=== PATIENT | female | born 1935 | race Caucasian/White ===

== ENCOUNTER → 2020-07-24 08:06 | Outpatient (CLI) | payer MEDICARE, BC, SELFPAY ==
[2020-07-24 18:55] LABS: Hemoglobin A1C% w Est Avg Glu 7.4 % (4.0-6.0)
== END ==
PROVIDERS: Visit Provider Family Medicine
DX: E11.9 Type 2 diabetes mellitus without complications (principal)
CPT/HCPCS: 83036

== ENCOUNTER → 2020-10-10 09:50 | Outpatient (CLI) | payer MEDICARE, BC, SELFPAY ==
[2020-10-10 19:30] LABS: Cholesterol 136 mg/dL (140-199); HDL Cholesterol 43 mg/dL (40-60); LDL Cholesterol Calculated 68 mg/dL (<100); Triglycerides 125 mg/dL (35-150)
[2020-10-10 19:36] LABS: Creatinine Urine Random 237.3 mg/dL
[2020-10-10 19:38] LABS: Microalbumin Urine Random 1.2 mg/dL (0-1.6)
[2020-10-10 20:24] LABS: Vitamin B12 Reflex MMA if <400 838 pg/mL (239-931)
== END ==
PROVIDERS: PCP Physician Assistant; Referring Provider Physician Assistant; Visit Provider Physician Assistant
DX: E11.59 Type 2 diabetes mellitus with other circulatory complications (principal); E11.69 Type 2 diabetes mellitus with other specified complication; E03.9 Hypothyroidism, unspecified; E66.9 Obesity, unspecified; E78.5 Hyperlipidemia, unspecified; I10 Essential (primary) hypertension; I15.2 Hypertension secondary to endocrine disorders; E53.8 Deficiency of other specified B group vitamins
CPT/HCPCS: 80061; 82043; 82570; 82607; 83036

== ENCOUNTER → 2020-12-24 13:27 | Outpatient (CLI) | payer MEDICARE, BC, SELFPAY ==
[2020-12-24 18:42] LABS: Add Manual Diff / Slide Review NO; Basophils Absolute Auto 0 /uL (0-100); Basophils Percent Auto 0.6 % (0-2); Eosinophils Absolute Auto 600 /uL (0-450); Eosinophils Percent Auto 9.9 % (2-4); Hematocrit 40.1 % (36-46); Hemoglobin 13.3 g/dL (12.0-16.0); Lymphocytes Absolute Auto 1800 /uL (1100-4500); Lymphocytes Percent Auto 28.4 % (25-40); Mean Corpuscular HGB Conc 33.3 % (30-36); Mean Corpuscular Hemoglobin 30.6 PG (26-34); Mean Corpuscular Volume 91.9 fL (80-100); Monocytes Absolute Auto 300 /uL (0-900); Monocytes Percent Auto 5.1 % (3-14); Neutrophils Absolute Auto 3600 /uL (1500-7000); Platelet Count 214 X10^3/uL (150-400); Red Blood Cell Count 4.36 X10^6/uL (4.0-5.2); Red Cell Distribution Width 14.3 % (11.6-14.8); White Blood Cell Count 6.5 X10^3/uL (4.5-11.0)
[2020-12-24 18:53] LABS: Alanine Aminotransferase 28 IU/L (<35); Albumin 3.9 g/dL (3.5-5.0); Albumin Globulin Ratio 1.5 (1.0-2.8); Alkaline Phosphatase 79 U/L (38-126); Aspartate Aminotransferase 31 IU/L (14-36); BUN Creatinine Ratio 17.7 (6-22); Bilirubin Total 0.3 mg/dL (0.2-1.3); Blood Urea Nitrogen 11 mg/dL (7-17); Calcium 9.6 mg/dL (8.4-10.2); Carbon Dioxide 30 mmol/L (22-32); Chloride 103 mmol/L (98-107); Estimated Glomerular Filt Rate > 60.0 mL/min (>60); Globulin 2.6 g/dL (1.7-4.1); Glucose 146 mg/dL (80-110); HEMOLYSIS < 15 (0-50); Potassium 4.5 mmol/L (3.4-5.1); Sodium 140 mmol/L (137-145); Total Protein 6.5 g/dL (6.3-8.2)
== END ==
PROVIDERS: PCP Family Medicine; Referring Provider Family Medicine; Visit Provider Family Medicine
DX: I10 Essential (primary) hypertension (principal); E11.59 Type 2 diabetes mellitus with other circulatory complications; E11.69 Type 2 diabetes mellitus with other specified complication; E66.9 Obesity, unspecified; E78.5 Hyperlipidemia, unspecified; I15.2 Hypertension secondary to endocrine disorders
CPT/HCPCS: 80053; 83036; 85025

== ENCOUNTER → 2021-04-04 08:55 | Outpatient (CLI) | payer OTHER, SELFPAY ==
[2021-04-04 19:42] LABS: Add Manual Diff / Slide Review NO; Amylase 38 U/L (30-110); Basophils Absolute Auto 0 /uL (0-100); Basophils Percent Auto 0.6 % (0-2); Eosinophils Absolute Auto 800 /uL (0-450); Eosinophils Percent Auto 12.8 % (2-4); Hematocrit 40.9 % (36-46); Hemoglobin 13.6 g/dL (12.0-16.0); Lipase 23 U/L (23-300); Lymphocytes Absolute Auto 1900 /uL (1100-4500); Lymphocytes Percent Auto 30.8 % (25-40); Mean Corpuscular HGB Conc 33.2 % (30-36); Mean Corpuscular Hemoglobin 30.5 PG (26-34); Mean Corpuscular Volume 91.9 fL (80-100); Monocytes Absolute Auto 400 /uL (0-900); Monocytes Percent Auto 6.2 % (3-14); Neutrophils Absolute Auto 3100 /uL (1500-7000); Neutrophils Percent Auto 49.6 % (50-75); Platelet Count 210 X10^3/uL (150-400); Red Blood Cell Count 4.45 X10^6/uL (4.0-5.2); Red Cell Distribution Width 14.3 % (11.6-14.8); White Blood Cell Count 6.2 X10^3/uL (4.5-11.0)
[2021-04-04 19:51] LABS: Hemoglobin A1C% w Est Avg Glu 7.4 % (4.0-6.0)
[2021-04-04 20:15] LABS: Thyroid Stimulating Hormone 3.14 uIU/mL (0.47-4.68)
== END ==
PROVIDERS: Physician Assistant; PCP Family Medicine; Visit Provider Physician Assistant
DX: D72.10 Eosinophilia, unspecified (principal); E11.9 Type 2 diabetes mellitus without complications; E03.9 Hypothyroidism, unspecified
CPT/HCPCS: 82150; 83036; 83690; 84443; 85025

== ENCOUNTER → 2021-07-03 08:30 | Outpatient (CLI) | payer OTHER, SELFPAY ==
[2021-07-03 18:32] LABS: Add Manual Diff / Slide Review NO; Basophils Absolute Auto 100 /uL (0-100); Basophils Percent Auto 1.9 % (0-2); Eosinophils Absolute Auto 1100 /uL (0-450); Eosinophils Percent Auto 15.7 % (2-4); Hematocrit 39.9 % (36-46); Hemoglobin 13.5 g/dL (12.0-16.0); Lymphocytes Absolute Auto 2300 /uL (1100-4500); Lymphocytes Percent Auto 34.1 % (25-40); Mean Corpuscular HGB Conc 33.7 % (30-36); Mean Corpuscular Hemoglobin 30.9 PG (26-34); Mean Corpuscular Volume 91.7 fL (80-100); Monocytes Absolute Auto 400 /uL (0-900); Monocytes Percent Auto 6.3 % (3-14); Neutrophils Absolute Auto 2900 /uL (1500-7000); Platelet Count 240 X10^3/uL (150-400); Red Blood Cell Count 4.36 X10^6/uL (4.0-5.2); Red Cell Distribution Width 14.3 % (11.6-14.8); White Blood Cell Count 6.8 X10^3/uL (4.5-11.0)
[2021-07-03 18:42] LABS: Hemoglobin A1C% w Est Avg Glu 8.2 % (4.0-6.0)
== END ==
PROVIDERS: PCP Family Medicine; Visit Provider Physician Assistant
DX: D72.10 Eosinophilia, unspecified (principal); E11.9 Type 2 diabetes mellitus without complications; Z79.4 Long term (current) use of insulin
CPT/HCPCS: 83036; 85025

== ENCOUNTER → 2021-07-10 15:16 | Outpatient (CLI) | payer MEDICARE, SELFPAY ==
[2021-07-15 17:08] LABS: Fecal Immunochemical Test Negative (Negative)
== END ==
PROVIDERS: PCP Family Medicine; Visit Provider Physician Assistant
DX: Z12.11 Encounter for screening for malignant neoplasm of colon (principal)
CPT/HCPCS: 82274

== ENCOUNTER → 2021-07-16 10:45 | Outpatient (CLI) | payer OTHER, SELFPAY | PROVIDERS: PCP Family Medicine; Visit Provider Physician Assistant | DX: D72.10 Eosinophilia, unspecified (principal) | CPT/HCPCS: 87177 ==

== ENCOUNTER → 2021-10-22 11:23 | Outpatient (CLI) | payer OTHER, SELFPAY ==
[2021-10-22 19:43] LABS: Add Manual Diff / Slide Review NO; Basophils Absolute Auto 0 /uL (0-100); Basophils Percent Auto 0.7 % (0-2); Eosinophils Absolute Auto 500 /uL (0-450); Eosinophils Percent Auto 8.6 % (2-4); Hematocrit 39.6 % (36-46); Hemoglobin 13.4 g/dL (12.0-16.0); Lymphocytes Absolute Auto 1700 /uL (1100-4500); Lymphocytes Percent Auto 27.2 % (25-40); Mean Corpuscular HGB Conc 33.9 % (30-36); Mean Corpuscular Hemoglobin 31.1 PG (26-34); Mean Corpuscular Volume 91.8 fL (80-100); Monocytes Absolute Auto 400 /uL (0-900); Monocytes Percent Auto 5.7 % (3-14); Neutrophils Absolute Auto 3600 /uL (1500-7000); Neutrophils Percent Auto 57.8 % (50-75); Platelet Count 247 X10^3/uL (150-400); Red Blood Cell Count 4.32 X10^6/uL (4.0-5.2); Red Cell Distribution Width 13.8 % (11.6-14.8); White Blood Cell Count 6.2 X10^3/uL (4.5-11.0)
[2021-10-22 19:55] LABS: Hemoglobin A1C% w Est Avg Glu 8.1 % (4.0-6.0)
[2021-10-22 19:58] LABS: Alanine Aminotransferase 21 IU/L (<35); Albumin 3.7 g/dL (3.5-5.0); Albumin Globulin Ratio 1.4 (1.0-2.8); Alkaline Phosphatase 95 U/L (38-126); Aspartate Aminotransferase 25 IU/L (14-36); BUN Creatinine Ratio 17.5 (6-22); Bilirubin Total 0.5 mg/dL (0.2-1.3); Blood Urea Nitrogen 11 mg/dL (7-17); Carbon Dioxide 25 mmol/L (22-32); Chloride 104 mmol/L (98-107); Estimated Glomerular Filt Rate > 60 mL/min (>60); Globulin 2.7 g/dL (1.7-4.1); Glucose 187 mg/dL (80-110); HEMOLYSIS < 15 (0-50); Potassium 4.2 mmol/L (3.4-5.1); Sodium 140 mmol/L (137-145); Total Protein 6.4 g/dL (6.3-8.2)
== END ==
PROVIDERS: PCP Family Medicine; Visit Provider Physician Assistant
DX: D72.10 Eosinophilia, unspecified (principal)
CPT/HCPCS: 80053; 83036; 85025

== ENCOUNTER → 2021-11-06 09:22 | Outpatient (CLI) | payer OTHER, SELFPAY ==
[2021-11-07 04:54] LABS: Free T4, Direct Thyroxine 1.43 ng/dL (0.78-2.19)
[2021-11-07 05:07] LABS: Thyroid Stimulating Hormone 2.28 uIU/mL (0.47-4.68)
== END ==
PROVIDERS: PCP Family Medicine; Visit Provider Physician Assistant
DX: E03.9 Hypothyroidism, unspecified (principal)
CPT/HCPCS: 84439; 84443

== ENCOUNTER → 2021-11-27 11:02 | Outpatient (CLI) | payer OTHER, SELFPAY ==
[2021-11-27 20:09] LABS: Free T4, Direct Thyroxine 1.35 ng/dL (0.78-2.19)
[2021-11-27 20:23] LABS: Thyroid Stimulating Hormone 1.75 uIU/mL (0.47-4.68)
== END ==
PROVIDERS: PCP Physician Assistant; Visit Provider Physician Assistant
DX: E03.9 Hypothyroidism, unspecified (principal)
CPT/HCPCS: 84439; 84443

== ENCOUNTER → 2022-01-19 09:23 | Outpatient (CLI) | payer OTHER, SELFPAY ==
[2022-01-19 20:36] LABS: Add Manual Diff / Slide Review NO; Basophils Absolute Auto 0 /uL (0-100); Basophils Percent Auto 0.7 % (0-2); Eosinophils Absolute Auto 600 /uL (0-450); Hematocrit 40.2 % (36-46); Hemoglobin 13.6 g/dL (12.0-16.0); Lymphocytes Absolute Auto 1700 /uL (1100-4500); Mean Corpuscular HGB Conc 33.9 % (30-36); Mean Corpuscular Hemoglobin 30.6 PG (26-34); Mean Corpuscular Volume 90.3 fL (80-100); Monocytes Absolute Auto 500 /uL (0-900); Monocytes Percent Auto 6.6 % (3-14); Neutrophils Absolute Auto 4300 /uL (1500-7000); Neutrophils Percent Auto 60.7 % (50-75); Platelet Count 200 X10^3/uL (150-400); Red Blood Cell Count 4.45 X10^6/uL (4.0-5.2); Red Cell Distribution Width 14.2 % (11.6-14.8); White Blood Cell Count 7.1 X10^3/uL (4.5-11.0)
[2022-01-19 21:06] LABS: TSH w/ Reflex to FT4 1.69 uIU/mL (0.47-4.68)
[2022-01-20 19:02] LABS: Hemoglobin A1C% w Est Avg Glu 9.2 % (4.0-6.0)
== END ==
PROVIDERS: PCP Physician Assistant; Visit Provider Physician Assistant
DX: D72.10 Eosinophilia, unspecified (principal); E03.9 Hypothyroidism, unspecified; E11.65 Type 2 diabetes mellitus with hyperglycemia
CPT/HCPCS: 83036; 84443; 85025

== ENCOUNTER → 2022-08-17 11:03 | Outpatient (CLI) | payer MEDICARE, SELFPAY ==
[2022-08-17 19:51] LABS: Add Manual Diff / Slide Review NO; Basophils Absolute Auto 100 /uL (0-100); Basophils Percent Auto 1.5 % (0-2); Eosinophils Absolute Auto 400 /uL (0-450); Hematocrit 41.7 % (36-46); Lymphocytes Absolute Auto 1700 /uL (1100-4500); Lymphocytes Percent Auto 27.5 % (25-40); Mean Corpuscular HGB Conc 33.7 % (30-36); Mean Corpuscular Hemoglobin 31.3 PG (26-34); Mean Corpuscular Volume 92.9 fL (80-100); Monocytes Absolute Auto 400 /uL (0-900); Monocytes Percent Auto 6.2 % (3-14); Neutrophils Absolute Auto 3500 /uL (1500-7000); Neutrophils Percent Auto 57.8 % (50-75); Platelet Count 202 X10^3/uL (150-400); Red Blood Cell Count 4.49 X10^6/uL (4.0-5.2); Red Cell Distribution Width 14.4 % (11.6-14.8)
[2022-08-20 02:07] LABS: x Labcorp Estim. Avg Glu (eAG) 206 mg/dL (.); x Labcorp Hemoglobin A1c 8.8 % (4.8-5.6)
== END ==
PROVIDERS: PCP Physician Assistant; Visit Provider Physician Assistant
DX: E11.69 Type 2 diabetes mellitus with other specified complication (principal); D72.10 Eosinophilia, unspecified; E78.5 Hyperlipidemia, unspecified
CPT/HCPCS: 83036; 85025

== ENCOUNTER → 2022-10-21 08:47 | Outpatient (CLI) | payer MEDICARE, SELFPAY ==
[2022-10-21 20:25] LABS: Add Manual Diff / Slide Review NO; Basophils Absolute Auto 0 /uL (0-100); Basophils Percent Auto 0.6 % (0-2); Eosinophils Absolute Auto 1000 /uL (0-450); Eosinophils Percent Auto 14.1 % (2-4); Hematocrit 42.7 % (36-46); Hemoglobin 14.3 g/dL (12.0-16.0); Lymphocytes Absolute Auto 1900 /uL (1100-4500); Lymphocytes Percent Auto 27.8 % (25-40); Mean Corpuscular HGB Conc 33.4 % (30-36); Mean Corpuscular Hemoglobin 31.2 PG (26-34); Mean Corpuscular Volume 93.4 fL (80-100); Monocytes Absolute Auto 500 /uL (0-900); Monocytes Percent Auto 6.6 % (3-14); Neutrophils Absolute Auto 3600 /uL (1500-7000); Neutrophils Percent Auto 50.9 % (50-75); Platelet Count 227 X10^3/uL (150-400); Red Blood Cell Count 4.57 X10^6/uL (4.0-5.2); Red Cell Distribution Width 14.3 % (11.6-14.8)
[2022-10-21 20:28] LABS: Hemoglobin A1C% w Est Avg Glu 7.6 % (4.0-6.0)
[2022-10-21 20:40] LABS: Alanine Aminotransferase 21 IU/L (<35); Albumin 3.8 g/dL (3.5-5.0); Albumin Globulin Ratio 1.3 (1.0-2.8); Alkaline Phosphatase 86 U/L (38-126); Aspartate Aminotransferase 27 IU/L (14-36); BUN Creatinine Ratio 18.5 (6-22); Bilirubin Total 0.7 mg/dL (0.2-1.3); Blood Urea Nitrogen 12 mg/dL (7-17); Calcium 8.5 mg/dL (8.4-10.2); Carbon Dioxide 28 mmol/L (22-32); Chloride 103 mmol/L (98-107); Cholesterol 151 mg/dL (140-199); Estimated Glomerular Filt Rate > 60 mL/min (>60); Globulin 2.9 g/dL (1.7-4.1); Glucose 89 mg/dL (80-110); HDL Cholesterol 46 mg/dL (40-60); HEMOLYSIS < 15 (0-50); LDL Cholesterol Calculated 83 mg/dL (<100); Potassium 4.1 mmol/L (3.4-5.1); Sodium 140 mmol/L (137-145); Total Protein 6.7 g/dL (6.3-8.2); Triglycerides 111 mg/dL (35-150)
[2022-10-21 21:06] LABS: Microalbumi Creatinin Ratio Ur 5.3 ug/mg CR (<30); Microalbumin Urine Random 0.6 mg/dL (0-1.6)
== END ==
PROVIDERS: PCP Physician Assistant; Visit Provider Physician Assistant Medical
DX: E03.9 Hypothyroidism, unspecified (principal); E11.69 Type 2 diabetes mellitus with other specified complication; E53.8 Deficiency of other specified B group vitamins; E78.5 Hyperlipidemia, unspecified; I10 Essential (primary) hypertension; Z68.31 Body mass index [BMI] 31.0-31.9, adult
CPT/HCPCS: 80053; 80061; 82043; 82570; 83036; 84443; 85025

== ENCOUNTER → 2022-12-23 09:25 | Outpatient (CLI) | payer MEDICARE, SELFPAY ==
[2022-12-23 19:48] LABS: Add Manual Diff / Slide Review NO; Basophils Absolute Auto 100 /uL (0-100); Eosinophils Absolute Auto 500 /uL (0-450); Eosinophils Percent Auto 8.2 % (2-4); Hematocrit 42.9 % (36-46); Hemoglobin 14.4 g/dL (12.0-16.0); Lymphocytes Absolute Auto 2500 /uL (1100-4500); Lymphocytes Percent Auto 37.2 % (25-40); Mean Corpuscular HGB Conc 33.6 % (30-36); Mean Corpuscular Hemoglobin 31.3 PG (26-34); Mean Corpuscular Volume 93.1 fL (80-100); Monocytes Absolute Auto 500 /uL (0-900); Monocytes Percent Auto 6.8 % (3-14); Neutrophils Absolute Auto 3100 /uL (1500-7000); Neutrophils Percent Auto 46.8 % (50-75); Platelet Count 241 X10^3/uL (150-400); Red Blood Cell Count 4.61 X10^6/uL (4.0-5.2); Red Cell Distribution Width 13.7 % (11.6-14.8); White Blood Cell Count 6.6 X10^3/uL (4.5-11.0)
[2022-12-23 19:49] LABS: Alanine Aminotransferase 23 IU/L (<35); Albumin 3.8 g/dL (3.5-5.0); Albumin Globulin Ratio 1.3 (1.0-2.8); Alkaline Phosphatase 93 U/L (38-126); Aspartate Aminotransferase 27 IU/L (14-36); BUN Creatinine Ratio 17.6 (6-22); Bilirubin Total 0.9 mg/dL (0.2-1.3); Blood Urea Nitrogen 12 mg/dL (7-17); Calcium 9.5 mg/dL (8.4-10.2); Carbon Dioxide 26 mmol/L (22-32); Chloride 103 mmol/L (98-107); Cholesterol 159 mg/dL (140-199); Estimated Glomerular Filt Rate > 60 mL/min (>60); Globulin 2.9 g/dL (1.7-4.1); Glucose 152 mg/dL (80-110); HDL Cholesterol 36 mg/dL (40-60); HEMOLYSIS < 15 (0-50); LDL Cholesterol Calculated 90 mg/dL (<100); Potassium 4.1 mmol/L (3.4-5.1); Sodium 137 mmol/L (137-145); Total Protein 6.7 g/dL (6.3-8.2); Triglycerides 163 mg/dL (35-150)
[2022-12-23 20:12] LABS: TSH w/ Reflex to FT4 1.35 uIU/mL (0.47-4.68)
== END ==
PROVIDERS: PCP Physician Assistant Medical; Visit Provider Physician Assistant Medical
DX: E11.69 Type 2 diabetes mellitus with other specified complication (principal); E11.59 Type 2 diabetes mellitus with other circulatory complications; E66.9 Obesity, unspecified; I15.2 Hypertension secondary to endocrine disorders; I10 Essential (primary) hypertension; E03.9 Hypothyroidism, unspecified
CPT/HCPCS: 80053; 80061; 83036; 84443; 85025

== ENCOUNTER → 2023-02-22 13:00 | Outpatient (CLI) | payer MEDICARE, SELFPAY ==
[2023-02-22 19:44] LABS: Add Manual Diff / Slide Review NO; Basophils Absolute Auto 0 /uL (0-100); Basophils Percent Auto 0.4 % (0-2); Eosinophils Absolute Auto 600 /uL (0-450); Eosinophils Percent Auto 9.4 % (2-4); Hematocrit 39.3 % (36-46); Lymphocytes Absolute Auto 1800 /uL (1100-4500); Lymphocytes Percent Auto 30.6 % (25-40); Mean Corpuscular HGB Conc 33.1 % (30-36); Mean Corpuscular Hemoglobin 31.1 PG (26-34); Mean Corpuscular Volume 94.2 fL (80-100); Monocytes Absolute Auto 400 /uL (0-900); Monocytes Percent Auto 6.8 % (3-14); Neutrophils Absolute Auto 3100 /uL (1500-7000); Neutrophils Percent Auto 52.8 % (50-75); Platelet Count 255 X10^3/uL (150-400); Red Blood Cell Count 4.17 X10^6/uL (4.0-5.2); Red Cell Distribution Width 14.8 % (11.6-14.8); White Blood Cell Count 5.9 X10^3/uL (4.5-11.0)
== END ==
PROVIDERS: PCP Physician Assistant Medical; Visit Provider Internal Medicine Hematology & Oncology
DX: D72.10 Eosinophilia, unspecified (principal)
CPT/HCPCS: 85025

== ENCOUNTER 2023-03-04 15:55 | Observation (INO) | payer MEDICARE, SELFPAY ==
[2023-03-04] VITALS (16 sets, daily range): BP systolic 142–194; BP diastolic 62–132; PULSE 61–72; RESP 12–20; TEMP 36–36.6; O2SAT 94–100; BMI 33.0
--- NOTE | 2023-03-04 16:08 | DI.CT.S_ITS ---
PROCEDURE: CT HEAD/BRAIN WO CON INDICATIONS: HTN, BLURRED VISION XTODAY , NOW RESOLVED TECHNIQUE: Noncontrast 4.5 mm thick angled axial sections acquired from the foramen magnum to the vertex, with coronal and sagittal reformats. For radiation dose reduction, the following was used: automated exposure control, adjustment of mA and/or kV according to patient size. COMPARISON: None. FINDINGS: Image quality: Diagnostic. CSF spaces: Basal cisterns are patent. No extra-axial fluid collections. The ventricles are symmetric in size and shape. Brain: No intracranial bleeds or masses. There is cerebral volume loss for age, with resultant ventricular and sulcal prominence. There are periventricular and deep white matter chronic small vessel ischemic changes. There is intracranial internal carotid artery atherosclerosis. Skull and face: Calvarium and visualized facial bones appear intact, without suspicious lesions. Incidental note is made of hyperostosis frontalis. This is not considered to be pathologic in a woman of this age. Sinuses: Visualized sinuses and mastoids are clear. IMPRESSION: No acute intracranial pathology. No acute intracranial hemorrhage is seen. If there is strong clinical suspicion for an acute stroke, please consider a brain MRI for further evaluation, as it is more sensitive (assuming that there is no contraindication to MRI). Dictated by: Gregg Singh M.D. on 03/04/2023 at 15:29 Approved by: Gregg Singh M.D. on 03/04/2023 at 15:30
[2023-03-04 16:19] LABS: Add Manual Diff / Slide Review NO; Basophils Absolute Auto 100 /uL (0-100); Basophils Percent Auto 0.9 % (0-2); Eosinophils Absolute Auto 300 /uL (0-450); Eosinophils Percent Auto 2.7 % (2-4); Hemoglobin 13.4 g/dL (12.0-16.0); Lymphocytes Absolute Auto 1600 /uL (1100-4500); Lymphocytes Percent Auto 15.2 % (25-40); Mean Corpuscular HGB Conc 33.5 % (30-36); Mean Corpuscular Volume 92.5 fL (80-100); Monocytes Absolute Auto 500 /uL (0-900); Monocytes Percent Auto 4.6 % (3-14); Neutrophils Absolute Auto 8300 /uL (1500-7000); Neutrophils Percent Auto 76.6 % (50-75); Platelet Count 232 X10^3/uL (150-400); Red Blood Cell Count 4.32 X10^6/uL (4.0-5.2); Red Cell Distribution Width 14.4 % (11.6-14.8); White Blood Cell Count 10.8 X10^3/uL (4.5-11.0)
[2023-03-04 16:25] LABS: Alanine Aminotransferase 17 IU/L (<35); Albumin 3.9 g/dL (3.5-5.0); Albumin Globulin Ratio 1.3 (1.0-2.8); Alkaline Phosphatase 92 U/L (38-126); Aspartate Aminotransferase 24 IU/L (14-36); BUN Creatinine Ratio 21.3 (6-22); Bilirubin Total 0.6 mg/dL (0.2-1.3); Blood Urea Nitrogen 16 mg/dL (7-17); Calcium 9.2 mg/dL (8.4-10.2); Carbon Dioxide 22 mmol/L (22-32); Chloride 103 mmol/L (98-107); Estimated Glomerular Filt Rate > 60 mL/min (>60); Globulin 3.1 g/dL (1.7-4.1); Glucose 160 mg/dL (80-110); HEMOLYSIS 15 (0-50); Potassium 4.3 mmol/L (3.4-5.1); Sodium 134 mmol/L (137-145)
[2023-03-04 16:55] LABS: Appearance Urine UA CLEAR; Bilirubin Urine UA NEGATIVE (NEGATIVE); Color Urine UA YELLOW; Glucose Urine UA NEGATIVE (Negative); Ketones Urine UA 1+ (NEGATIVE); Leukocyte Esterase Urine UA 1+ (NEGATIVE); Nitrite Urine UA NEGATIVE (Negative); Occult Blood Urine UA NEGATIVE (Negative); Protein Urine UA NEGATIVE (Negative); Specific Gravity Urine UA 1.025 (1.000-1.035); Urobilinogen Urine UA 0.2 E.U./dL (0.2)
[2023-03-04 16:59] LABS: pH Urine UA 5.5 (4.5-8.0)
[2023-03-04 17:03] LABS: Bacteria Urine Occasional (0-1); Culture Indicated Urine Specimen Cultured; RBC Urine None Seen (0-5/HPF); Squamous Epithelial Cell Urine 0-1 /HPF (0-5/HPF); WBC Urine 1-5/HPF (0-5/HPF)
--- NOTE | 2023-03-04 18:13 | ED_ITS ---
HPI - General Adult General Chief complaint: Hypertension Stated complaint: Hypertension, blurred vision Time Seen by Provider: 03/04/23 15:55 Source: patient and EMS Mode of arrival: EMS History of Present Illness HPI narrative: Patient is an 87-year-old female. History of hypertension, insulin-dependent diabetes, hyperlipidemia and hypothyroid. States she was at her normal state of health at approximately 1130 this morning when she was watching TV noticed that the bottom portion of her vision was ?going in and out? she states that there was periods of time when she could not see anything in the lower half of her vision. It did seem to be both eyes. Symptoms did last for greater than 10 minutes but she does not know exactly how long. She would very similar symptoms about 1 week ago but at that point it was only involving her left eye. When the symptoms happened today she was not having any other symptoms to include headache, speech difficulty, dizziness or upper lower extremity weakness or tingling. She contacted her eye doctor who advised that she call EMS. When EMS arrived she was found to be hypertensive with a systolic blood pressure greater than 200s. He was reported that she did receive labetalol prior to arrival here in the ER. When I evaluated the patient her vision was back to normal. She stated that she did have a ?slight? headache in the back of her head. No other symptoms. Related Data Home Medications Medication Instructions Recorded Confirmed blood glucose control, normal #1 ea 11/26/22 01/21/23 (OneTouch Ultra Control solution) blood-glucose meter (OneTouch #1 ea 11/26/22 01/21/23 Ultra2 Meter) lancets 31 gauge (Ultra Thin #100 ea 11/26/22 01/21/23 Lancets) latanoprost 0.005 % eye drops drp EYE-BOTH 11/26/22 01/21/23 Previous Rx's Medication Instructions Recorded pen needle, diabetic 32 gauge x #90 ea 01/27/22 (BD Ultra-Fine Michaela Pen Needle) levothyroxine 88 mcg tablet 88 mcg PO DAILY #90 tabs 05/18/22 losartan 100 mg tablet See Rx Instructions .Route 08/12/22 .COMPLEX #90 tabs blood glucose control high and low #2 ea 08/17/22 solution blood sugar diagnostic (Blood #300 ea 08/17/22 Glucose Test strips) lancets 33 gauge (BD Ultra Fine #300 ea 08/17/22 Lancets) metformin 500 mg tablet,extended 500 mg PO DAILY #90 tabs 01/21/23 release 24 hr atorvastatin 40 mg tablet 40 mg PO DAILY #90 tabs 01/25/23 pioglitazone 15 mg tablet (Actos) 30 mg (2 x 15 mg) PO DAILY #90 tabs 02/24/23 insulin glargine 100 unit/mL (3 See Rx Instructions .Route 03/02/23 mL) subcutaneous pen (Lantus .COMPLEX #15 mL Solostar U-100 Insulin) Allergies Allergy/AdvReac Type Severity Reaction Status Date / Time metformin Allergy Mild Verified 02/24/23 11:24 semaglutide [From Ozempic] AdvReac Severe Nausea Verified 02/24/23 11:24 empagliflozin AdvReac Intermediate Nausea Verified 02/24/23 11:24 [From Jardiance] lisinopril AdvReac Intermediate COUGH Verified 02/24/23 11:24 Review of Systems Review of Systems ROS Unobtainable: All systems reviewed & are unremarkable except as noted in HPI and below Patient History Medical History Screening for colon cancer Screening for breast cancer Screening for osteoporosis Social History Smoking Status: Never smoker Smoking Status: Never smoker Substance Use Type: does not use Exam Initial Vital Signs Initial Vital Signs: Vital Signs Pulse Rate 61 03/04/23 15:58 Pulse Oximetry 99 03/04/23 15:58 Const General: cooperative, comfortable and No ill appearing [facility] Head: normal to inspection and normocephalic Eyes Visual Saunders: normal visual saunders by confrontation Periorbital: periorbital findings normal Pupils: PERRL EOM: EOM intact bilaterally Resp Effort & Inspection: normal respiratory effort Auscultation: clear to auscultation bilaterally Cardio Rate: regular rate Rhythm: regular rhythm Skin General: no rashes or lesions noted Neuro General: patient alert, patient awake, patient oriented x3 and moves all extremities Cranial Nerves: CN's II-XI intact bilaterally Cognition: normal cognition Speech: speech normal Extrem General: capillary refill normal Scores ABCD2 Age >= 60 years: yes Initial BP. Either SBP >= 140 or DBP >= 90.: yes Clinical features of the TIA: other symptoms Duration of symptoms: 10-59 minutes History of diabetes: yes ABCD2 Score: 4 GCS [place] coma scale eye opening: Spontaneous [place] coma scale verbal response: Orientated [place] coma scale motor response: Obey commands [place] coma scale total score: 15 Course Orders Ordered: ED Orders 03/04/23 16:05 CBC Auto Diff [Complete Blood Count AUTO DIFF] Stat CMP [Comprehensive Metabolic Panel] Stat 03/04/23 16:08 CT head/brain wo con Stat 03/04/23 16:37 UA Complete [Urinalysis and Microscopic] Stat Urine Culture Stat 03/04/23 18:23 CT angio head and neck Stat Discontinued Medications Aspirin (Aspirin 81 Mg Chew Tab) 324 mg PO NOW ONE Stop: 03/04/23 19:33 Last Admin: 03/04/23 19:42 Dose: 324 mg Documented By: ANAM Vital Signs Vital signs: Vital Signs - 8 hr 03/04/23 15:58 03/04/23 16:00 03/04/23 16:00 Temperature Pulse Rate 61 64 Respiratory Rate Blood Pressure 178/132 H Pulse Oximetry 99 100 Oxygen Delivery Method 03/04/23 16:03 03/04/23 16:03 03/04/23 16:03 Temperature 97.9 F Pulse Rate 63 65 Respiratory Rate 16 Blood Pressure 178/132 H 177/75 H Pulse Oximetry 99 98 Oxygen Delivery Method Room Air Room Air 03/04/23 16:30 03/04/23 16:41 03/04/23 16:41 Temperature Pulse Rate 65 67 Respiratory Rate 14 20 Blood Pressure 194/80 H Pulse Oximetry 100 99 Oxygen Delivery Method 03/04/23 17:00 03/04/23 17:27 03/04/23 17:27 Temperature Pulse Rate 66 62 Respiratory Rate 14 12 Blood Pressure 152/68 H Pulse Oximetry 94 97 Oxygen Delivery Method 03/04/23 17:30 03/04/23 17:30 03/04/23 18:00 Temperature Pulse Rate 63 62 Respiratory Rate 12 15 Blood Pressure 153/69 H Pulse Oximetry 95 95 Oxygen Delivery Method 03/04/23 18:00 03/04/23 18:30 03/04/23 18:30 Temperature Pulse Rate 64 Respiratory Rate 15 Blood Pressure 142/65 H 163/72 H Pulse Oximetry 99 Oxygen Delivery Method 03/04/23 18:55 03/04/23 18:55 03/04/23 19:00 Temperature Pulse Rate 70 Respiratory Rate 12 Blood Pressure 169/72 H 148/65 H Pulse Oximetry 99 Oxygen Delivery Method 03/04/23 19:00 03/04/23 19:30 03/04/23 19:30 Temperature Pulse Rate 68 63 Respiratory Rate 12 12 Blood Pressure 153/68 H Pulse Oximetry 97 97 Oxygen Delivery Method Medical Decision Making Lab Data Lab results reviewed: Yes I reviewed the patient's lab results. 03/04/23 16:05 03/04/23 16:05 Labs: Lab Results 03/04/23 03/04/23 Range/Units 16:05 16:37 WBC 10.8 (4.5-11.0) X10^3/uL RBC 4.32 (4.0-5.2) X10^6/uL Hgb 13.4 (12.0-16.0) g/dL Hct 40.0 (36-46) % MCV 92.5 (80-100) fL MCH 31.0 (26-34) PG MCHC 33.5 (30-36) % RDW 14.4 (11.6-14.8) % Plt Count 232 (150-400) X10^3/uL Neut % (Auto) 76.6 H (50-75) % Lymph % (Auto) 15.2 L (25-40) % [place] % (Auto) 4.6 (3-14) % Eos % (Auto) 2.7 (2-4) % Baso % (Auto) 0.9 (0-2) % Neut # (Auto) 8300 H (7963-2492) /uL Lymph # (Auto) 1600 (4631-9654) /uL [place] # (Auto) 500 (0-900) /uL Eos # (Auto) 300 (0-450) /uL Baso # (Auto) 100 (0-100) /uL Sodium 134 L (137-145) mmol/L Potassium 4.3 (3.4-5.1) mmol/L Chloride 103 (98-107) mmol/L Carbon Dioxide 22 (22-32) mmol/L BUN 16 (7-17) mg/dL Creatinine 0.75 (0.52-1.04) mg/dL Estimated GFR > 60 (>60) mL/min BUN/Creatinine Ratio 21.3 (6-22) Glucose 160 H (80-110) mg/dL Calcium 9.2 (8.4-10.2) mg/dL Total Bilirubin 0.6 (0.2-1.3) mg/dL AST 24 (14-36) IU/L ALT 17 (<35) IU/L Alkaline Phosphatase 92 (38-126) U/L Total Protein 7.0 (6.3-8.2) g/dL Albumin 3.9 (3.5-5.0) g/dL Globulin 3.1 (1.7-4.1) g/dL Albumin/Globulin Ratio 1.3 (1.0-2.8) Urine Color Yellow Urine Appearance Clear Urine pH 5.5 (4.5-8.0) Ur Specific [place] 1.025 (1.000-1.035) Urine Protein Negative (Negative) Urine Glucose (UA) Negative (Negative) g/dL Urine Ketones 1+ H (NEGATIVE) Urine Occult Blood Negative (Negative) Urine Nitrate Negative (Negative) Urine Bilirubin Negative (NEGATIVE) Urine Urobilinogen 0.2 (0.2) E.U./dL Ur Leukocyte Esterase 1+ H (NEGATIVE) Urine RBC None seen (0-5/HPF) Urine WBC 1-5/hpf (0-5/HPF) Ur Squamous Epith Cells 0-1 /hpf (0-5/HPF) Urine Bacteria Occasional (0-1) (None) Ur Culture Indicated? Specimen cultured Urine Dip Bedside Urine Glucose Negative Bedside Urine Bilirubin - Negative Bedside Urine Ketone +/- 5 Urine Specific [place] 1.025 Bedside Urine Occult Blood - Negative Bedside Urine pH 6.0 Bedside Urine Protein - Negative Bedside Urine Urobilinogen - Negative Bedside Urine Nitrite - Negative Bedside Urine Leukocytes ++ 125 Esterase Point of care testing: Urine Dip Bedside Urine Glucose Negative Bedside Urine Bilirubin - Negative Bedside Urine Ketone +/- 5 Urine Specific [place] 1.025 Bedside Urine Occult Blood - Negative Bedside Urine pH 6.0 Bedside Urine Protein - Negative Bedside Urine Urobilinogen - Negative Bedside Urine Nitrite - Negative Bedside Urine Leukocytes ++ [address] scan - head: Radiologist's Impression: PROCEDURE: CT HEAD/BRAIN WO CON INDICATIONS: HTN, BLURRED VISION XTODAY , NOW RESOLVED TECHNIQUE: Noncontrast 4.5 mm thick angled axial sections acquired from the foramen magnum to the vertex, with coronal and sagittal reformats. For radiation dose reduction, the following was used: automated exposure control, adjustment of mA and/or kV according to patient size. COMPARISON: None. FINDINGS: Image quality: Diagnostic. CSF spaces: Basal cisterns are patent. No extra-axial fluid collections. The ventricles are symmetric in size and shape. Brain: No intracranial bleeds or masses. There is cerebral volume loss for age, with resultant ventricular and sulcal prominence. There are periventricular and deep white matter chronic small vessel ischemic changes. There is intracranial internal carotid artery atherosclerosis. Skull and face: Calvarium and visualized facial bones appear intact, without suspicious lesions. Incidental note is made of hyperostosis frontalis. This is not considered to be pathologic in a woman of this age. Sinuses: Visualized sinuses and mastoids are clear. IMPRESSION: No acute intracranial pathology. No acute intracranial hemorrhage is seen. If there is strong clinical suspicion for an acute stroke, please consider a brain MRI for further evaluation, as it is more sensitive (assuming that there is no contraindication to MRI). CTA - brain/neck: Radiologist's Impression: PROCEDURE: CT ANGIO HEAD AND NECK INDICATIONS: Bilateral or lower vision loss now resolved TECHNIQUE: After the administration of intravenous contrast, 1 mm thick sections acquired from the aortic arch through the [place] of [place]. 3-dimensional hnkgibe-auhekyepw-yilvavvctw (MIP) and/or volume rendering reformats were acquired of the central intracranial vasculature and neck separately. For radiation dose reduction, the following was used: automated exposure control, adjustment of mA and/or kV according to patient size. COMPARISON: None. FINDINGS: Image quality: Diagnostic. BRAIN: CSF spaces: Ventricles are normal in size and shape. Basal cisterns are patent. No extra-axial fluid collections. Brain: No significant abnormality of the brain can be seen. Skull and face: Calvarium and facial bones appear intact, without suspicious lesions. Orbits appear normal. Sinuses: Sinuses and mastoids are clear. HEAD CT ANGIOGRAPHY: Anterior circulation: Intracranial internal carotid arteries are normal in size and flow. The flow within the paired anterior cerebral arteries is normal and symmetric. The flow within the middle cerebral arteries is normal and symmetric. The anterior communicating artery is seen. No aneurysms are seen. Posterior circulation: Visualized portions of the vertebral arteries demonstrate normal caliber, and join to form a normal appearing basilar artery. Flow within the posterior cerebral arteries is normal and symmetric. No aneurysms are seen. NECK CT ANGIOGRAPHY: Carotid system: The great vessels demonstrate a conventional anatomy as they arise from the aortic arch. The origins of the common carotid arteries appear patent. The common carotid arteries demonstrate normal caliber and courses. The bifurcation regions are both widely patent. The internal carotid arteries demonstrate normal calibers and courses. Posterior circulation: The origins of the vertebral arteries both appear widely patent. The more superior extracranial portions of both vertebral arteries also demonstrate normal courses and calibers. They join to form a normal appearing basilar artery. Soft tissues: Visualized neck soft tissues demonstrate no suspicious abnormalities. Bones: No suspicious bony lesions. Visualized cervical spine appears normally aligned. IMPRESSION: No significant intracranial arterial abnormality is seen. No significant abnormality is seen within the arteries of the neck. Any quantitative measurements of stenosis were performed using NASCET criteria. ECG Data Attestation: I personally reviewed and interpreted this ECG as follows: Interpretation: Sinus rhythm Ventricular rate is 69 Normal axis QRS 92 milliseconds QTC [address] T wave changes MDM Narrative Medical decision making narrative: Patient currently is asymptomatic other than a very slight posterior headache. Her blood pressure is much improved per the reported blood pressure earlier when she was having the symptoms. She does have a ABCD2 score of 4. Was given an aspirin here in the ER. Head CT and CTA of the head and neck showed no acute pathology. Symptoms are consistent with a TIA. Discussed the case initially with Dr. Norton hospitalist on-call who asked that we obtain the CTA prior to admission. I then discussed the case with Dr. Denis hospitalist on-call who will admit. Discussed the need for admission with the patient. She expressed understanding and agreement as well. Discharge Plan Departure Patient Disposition: Admitted as Observation Clinical Impression: Brain TIA, Hypertension Admit Date/Time: 03/04/23 19:38 Admit Provider: Angus Denis
--- NOTE | 2023-03-04 18:23 | DI.CT.S_ITS ---
PROCEDURE: CT ANGIO HEAD AND NECK INDICATIONS: Bilateral or lower vision loss now resolved TECHNIQUE: After the administration of intravenous contrast, 1 mm thick sections acquired from the aortic arch through the [place] of [place]. 3-dimensional xohyikg-qbnyzxbsq-fgedlfhera (MIP) and/or volume rendering reformats were acquired of the central intracranial vasculature and neck separately. For radiation dose reduction, the following was used: automated exposure control, adjustment of mA and/or kV according to patient size. COMPARISON: None. FINDINGS: Image quality: Diagnostic. BRAIN: CSF spaces: Ventricles are normal in size and shape. Basal cisterns are patent. No extra-axial fluid collections. Brain: No significant abnormality of the brain can be seen. Skull and face: Calvarium and facial bones appear intact, without suspicious lesions. Orbits appear normal. Sinuses: Sinuses and mastoids are clear. HEAD CT ANGIOGRAPHY: Anterior circulation: Intracranial internal carotid arteries are normal in size and flow. The flow within the paired anterior cerebral arteries is normal and symmetric. The flow within the middle cerebral arteries is normal and symmetric. The anterior communicating artery is seen. No aneurysms are seen. Posterior circulation: Visualized portions of the vertebral arteries demonstrate normal caliber, and join to form a normal appearing basilar artery. Flow within the posterior cerebral arteries is normal and symmetric. No aneurysms are seen. NECK CT ANGIOGRAPHY: Carotid system: The great vessels demonstrate a conventional anatomy as they arise from the aortic arch. The origins of the common carotid arteries appear patent. The common carotid arteries demonstrate normal caliber and courses. The bifurcation regions are both widely patent. The internal carotid arteries demonstrate normal calibers and courses. Posterior circulation: The origins of the vertebral arteries both appear widely patent. The more superior extracranial portions of both vertebral arteries also demonstrate normal courses and calibers. They join to form a normal appearing basilar artery. Soft tissues: Visualized neck soft tissues demonstrate no suspicious abnormalities. Bones: No suspicious bony lesions. Visualized cervical spine appears normally aligned. IMPRESSION: No significant intracranial arterial abnormality is seen. No significant abnormality is seen within the arteries of the neck. Any quantitative measurements of stenosis were performed using NASCET criteria. Dictated by: Kenny Hickey M.D. on 03/04/2023 at 19:19 Approved by: Kenny Hickey M.D. on 03/04/2023 at 19:22
[2023-03-04] MEDS: ASPIRIN 81 MG CHEW TAB 324 MG PO (19:42)
[2023-03-05] VITALS: BP 154/54; PULSE 66; RESP 17; TEMP 35.9; O2SAT 98
--- NOTE | 2023-03-05 03:07 | DI.ECHO.S_ITS ---
Version: 1 Study ID: [id number] [place] [address] Name: SHERYL ESPINO Study Date: 03/05/2023, 11: 06 AM : 1935 Gender: Female Height: 62 in Age: 87 Years Weight: 180 lb BSA: 1.83 mA? Ordering: KIMI TAYLOR MD Referring: KIMI TAYLOR MD Clinician: Aysha Cleveland Reason For Study: CVA History: Summary Statements Normal sinus rhythm. Normal LV size, wall thickness, wall motion and LV systolic function. Ejection fraction 60-65%. Normal chamber sizes. Mild mitral annular calcification. Otherwise no significant valvular abnormalities. No patent foramen ovale based on color-flow Doppler. No source of embolism found. Procedure: A two-dimensional transthoracic echocardiogram with color flow and Doppler was performed. The study quality was technically adequate. There is no prior echocardiogram noted for this patient. The patient was in sinus rhythm with heart rates between 55-72 bpm during the exam. Left Ventricle: The ejection fraction is estimated to be 60-65%. The left ventricle is normal in size and wall thickness. Right Ventricle: The right ventricle is normal in size and function. Atria: There is no Doppler evidence for an interatrial shunt. The left atrial size is normal. Right atrial size is normal. Mitral Valve: There is mild mitral regurgitation. The mitral valve leaflets appear mildly thickened, but open well. There is mild mitral annular calcification. Aortic Valve: No aortic regurgitation is present. There is no aortic valve stenosis. The aortic valve is trileaflet. The aortic valve opens well. Tricuspid Valve: There is mild tricuspid regurgitation. The right ventricular systolic pressure is estimated to be at least 29 mmHg based on an estimated right atrial pressure of 3 mm Hg. The tricuspid valve is normal in structure and function. Pulmonic Valve: There is no pulmonic valvular regurgitation. The pulmonic valve leaflets are thin and pliable; valve motion is normal. Great Vessels: The dimensions of the ascending aorta are normal. The aortic root is normal size. The IVC is of normal diameter and collapses greater than 50% with a sniff. This suggests a low right atrial pressure of 3 mm Hg. Pericardium/ Pleura: There is no pericardial effusion. There is no pleural effusion. 2D and M-Mode Measurements and Calculations LVIDd: 4.6 cm AoV Openin.46 cm LVIDs: 2.9 cm LVOT diam: 2.01 cm IVSd: 0.83 cm Ao root diam: 2.41 cm LVPWd: 0.89 cm asc Aorta Diam: 2.9 cm LV tomlinson. diameter/BSA (cm/m^2): 2.49 Ao Arch Diam (Prox Trans): 2.11 cm LV sys. diameter/BSA (cm/m^2): 1.56 RVD1 (basal): 3.2 cm RVD2 (mid): 2.7 cm TAPSE: 1.75 cm LA A4 area: 20.2 machine bander and cellophaner helper? IVC diam: 1.68 cm LA A2 area: 18.3 machine bander and cellophaner helper? RA area: 14.6 machine bander and cellophaner helper? LA length (vol): 5.7 cm RA long axis: 4.6 cm LA vol: 55.5 ml RA vol: 39.9 ml LA vol index: 30.4 ml/mA? RA : 21.8 ml/mA? Doppler Measurements and Calculations Ao V2 max: 151.5 cm/sec LVOT Max Lencho: 99.3 cm/sec Ao V2 mean: 107.4 cm/sec LV V1 max P.0 mmHg Ao V2 VTI: 35.8 cm LV V1 VTI: 24.9 cm Ao max P.2 mmHg SV(LVOT): 78.8 ml Ao mean P.0 mmHg PARISH(I,D): 2.20 machine bander and cellophaner helper? PARISH(V,D): 2.08 machine bander and cellophaner helper? PARISH indexed to BSA (cm^2/m^2): 1.21 sev ratio: 0.70 MV E max lencho: 132.6 cm/sec MV dec time: 0.33 sec MV A max lencho: 135.1 cm/sec MV mean P.8 mmHg MV E/A: 0.98 MVA(VTI): 1.63 machine bander and cellophaner helper? Med Peak E' Lencho: 5.8 cm/sec Lat Peak E' Lencho: 7.1 cm/sec E/e' average: 20.7 TR max lencho: 255.8 cm/sec PA mean P.60 mmHg TR max P.2 mmHg PA V2 max: 81.8 cm/sec Electronically signed by: Scarlett Rios M.D. 03/05/2023, 1: 36 PM
[2023-03-05 04:00] VITALS: BP 139/60; PULSE 64; RESP 17; TEMP 36.2; O2SAT 98
[2023-03-05] MEDS: LEVOTHYROXINE 88 MCG TABLET PO (06:07)
--- NOTE | 2023-03-05 06:28 | P.HP_ITS ---
History of Present Illness History of Present Illness Date Patient Seen: 03/04/23 Time Patient Seen: 23:30 Date of Onset of Symptoms: 03/04/23 Chief complaint: Hypertension, blurred vision Narrative: 87 years old female with a past medical history of diabetes mellitus insulin- dependent type 2, hypertension, dyslipidemia, hypothyroidism and other medical issues presented to the emergency room for intermittent vision loss since earlier in the day from. She was watching TV when she noticed that the bottom portion of her vision was going blank/turning black affecting both the eyes. Also had mild headache affecting the posterior half and both the vision loss/headache has since resolved.Had a similar issue involving partial vision loss that was transient on the left eye about a week to 10 days ago. Denies any dizziness or loss of consciousness. Denies any chest pain or shortness of breath. Denies any upper or lower extremity weakness. In the ED, systolic blood pressure was in the 170s. Labs were fairly unremarkable and urine analysis was negative for nitrites/leukocyte esterase. CT scan of the head shows no acute process. CT angio of the head and neck shows no major vascular pathology. Patient was admitted for further evaluation [facility] Medical History Screening for colon cancer Screening for breast cancer Screening for osteoporosis Social History household members: children Smoking Status: Never smoker alcohol intake: never Meds Home Medications and Allergies Home Medications Medication Instructions Recorded Confirmed Type pen needle, diabetic 32 gauge x #90 ea 01/27/22 01/21/23 Rx 5/32 (BD Ultra-Fine Michaela Pen Needle) levothyroxine 88 mcg tablet 88 mcg PO DAILY #90 tabs 05/18/22 03/04/23 Rx losartan 100 mg tablet See Rx Instructions .Route 08/12/22 03/04/23 Rx .COMPLEX #90 tabs blood glucose control high and low #2 ea 08/17/22 01/21/23 Rx solution blood sugar diagnostic (Blood #300 ea 08/17/22 01/21/23 Rx Glucose Test strips) lancets 33 gauge (BD Ultra Fine #300 ea 08/17/22 01/21/23 Rx Lancets) blood glucose control, normal #1 ea 11/26/22 01/21/23 History (OneTouch Ultra Control solution) blood-glucose meter (OneTouch #1 ea 11/26/22 01/21/23 History Ultra2 Meter) lancets 31 gauge (Ultra Thin #100 ea 11/26/22 01/21/23 History Lancets) latanoprost 0.005 % eye drops drp EYE-BOTH 11/26/22 01/21/23 History metformin 500 mg tablet,extended 500 mg PO DAILY #90 tabs 01/21/23 03/04/23 Rx release 24 hr atorvastatin 40 mg tablet 40 mg PO DAILY #90 tabs 01/25/23 03/04/23 Rx pioglitazone 15 mg tablet (Actos) 30 mg (2 x 15 mg) PO DAILY #90 tabs 02/24/23 03/04/23 Rx insulin glargine 100 unit/mL (3 See Rx Instructions .Route 03/02/23 Rx mL) subcutaneous pen (Lantus .COMPLEX #15 mL Solostar U-100 Insulin) insulin glargine 100 unit/mL (3 14 unit SUBCUT QPM 03/05/23 03/05/23 History mL) subcutaneous pen (Lantus Solostar U-100 Insulin) Allergies Allergy/AdvReac Type Severity Reaction Status Date / Time semaglutide [From Ozempic] AdvReac Severe Nausea Verified 02/24/23 11:24 empagliflozin AdvReac Intermediate Nausea Verified 02/24/23 11:24 [From Jardiance] lisinopril AdvReac Intermediate COUGH Verified 02/24/23 11:24 Review of Systems Review of Systems Narrative: 12 point review of system is negative unless otherwise stated in the history of present illness Exam Vital Signs (past 8 hours): - 03/05/23 00:00 03/05/23 04:00 Temperature 96.7 F L 97.2 F L Pulse Rate 66 64 Respiratory Rate 17 17 Blood Pressure 154/54 H 139/60 Pulse Oximetry 98 98 Oxygen Flow Rate 0 0 Oxygen Delivery Method Room Air Oxygen Flow Rate 0 Narrative Exam Narrative: Patient is awake alert oriented. Following commands. No obvious focal neurodeficits noted Objective Labs 03/04/23 16:05 03/04/23 16:05 Labs: Laboratory Results - last 24 hr 03/04/23 03/04/23 16:05 16:37 WBC 10.8 RBC 4.32 Hgb 13.4 Hct 40.0 MCV 92.5 MCH 31.0 MCHC 33.5 RDW 14.4 Plt Count 232 Neut % (Auto) 76.6 H Lymph % (Auto) 15.2 L [place] % (Auto) 4.6 Eos % (Auto) 2.7 Baso % (Auto) 0.9 Neut # (Auto) 8300 H Lymph # (Auto) 1600 [place] # (Auto) 500 Eos # (Auto) 300 Baso # (Auto) 100 Sodium 134 L Potassium 4.3 Chloride 103 Carbon Dioxide 22 BUN 16 Creatinine 0.75 Estimated GFR > 60 BUN/Creatinine Ratio 21.3 Glucose 160 H Calcium 9.2 Total Bilirubin 0.6 AST 24 ALT 17 Alkaline Phosphatase 92 Total Protein 7.0 Albumin 3.9 Globulin 3.1 Albumin/Globulin Ratio 1.3 Urine Color Yellow Urine Appearance Clear Urine pH 5.5 Ur Specific [place] 1.025 Urine Protein Negative Urine Glucose (UA) Negative Urine Ketones 1+ H Urine Occult Blood Negative Urine Nitrate Negative Urine Bilirubin Negative Urine Urobilinogen 0.2 Ur Leukocyte Esterase 1+ H Urine RBC None seen Urine WBC 1-5/hpf Ur Squamous Epith Cells 0-1 /hpf Urine Bacteria Occasional (0-1) Ur Culture Indicated? Specimen cultured Assessment & Plan Assessment & Plan narrative: 87 years old female with a past medical history of diabetes mellitus insulin- dependent type 2, hypertension, dyslipidemia, hypothyroidism and other medical issues presented to the emergency room for intermittent vision loss since earlier in the day from. She was watching TV when she noticed that the bottom portion of her vision was going blank/turning black affecting both the eyes. Also had mild headache affecting the posterior half and both the vision loss/headache has since resolved.Had a similar issue involving partial vision loss that was transient on the left eye about a week to 10 days ago. Denies any dizziness or loss of consciousness. Denies any chest pain or shortness of breath. Denies any upper or lower extremity weakness. In the ED, systolic blood pressure was in the 170s. Labs were fairly unremarkable and urine analysis was negative for nitrites/leukocyte esterase. CT scan of the head shows no acute process. CT angio of the head and neck shows no major vascular pathology. Patient was admitted for further evaluation 1. Vision loss transient. Appears more of a TIA at this time. CT head and CT angio of the head and neck shows no acute process. Monitor in telemetry and follow-up with an MRI of the brain/echocardiogram for further patient. In the meantime continue aspirin at 81 mg daily and initiate Plavix. Continue the home statin. Check lipid panel. Focus on risk factor reduction including better blood pressure and blood sugar control. Consult physical therapy for further evaluation 2 Hypertension. Systolic is now in the 140s to 160s. With gradual reduction of the blood pressure and resume the home losartan while watching the blood pressure closely on the monitor 3 Diabetes mellitus type 2. Resume the home Actos and the Lantus while watching the blood sugars closely. Hold off on the metformin due to recent contrast use. Check an A1c level 4. Hypothyroidism resume the home levothyroxine and check a TSH level 5 Dyslipidemia resume home statin and check lipid panel 6 DVT prophylaxis will be with Lovenox Patient will be admitted under observation status. Goals of care reviewed and patient is full code. Plan of care discussed with the care team and with the patient Patient was evaluated with the help of two-way telecommunication device. Provider is located in [facility] VTE Deep Vein Thrombosis/Pulmonary Embolism Present on Admission: No
[2023-03-05 08:00] VITALS: BP 148/47; PULSE 70; RESP 20; TEMP 36.7; O2SAT 97
[2023-03-05 08:45] LABS: Add Manual Diff / Slide Review NO; Basophils Absolute Auto 100 /uL (0-100); Basophils Percent Auto 1.1 % (0-2); Eosinophils Absolute Auto 600 /uL (0-450); Hematocrit 40.6 % (36-46); Hemoglobin 13.4 g/dL (12.0-16.0); Lymphocytes Absolute Auto 2000 /uL (1100-4500); Lymphocytes Percent Auto 27.5 % (25-40); Mean Corpuscular Hemoglobin 30.6 PG (26-34); Mean Corpuscular Volume 92.6 fL (80-100); Monocytes Absolute Auto 500 /uL (0-900); Monocytes Percent Auto 7.5 % (3-14); Neutrophils Absolute Auto 4000 /uL (1500-7000); Neutrophils Percent Auto 55.9 % (50-75); Platelet Count 231 X10^3/uL (150-400); Red Blood Cell Count 4.39 X10^6/uL (4.0-5.2); Red Cell Distribution Width 14.4 % (11.6-14.8); White Blood Cell Count 7.2 X10^3/uL (4.5-11.0)
[2023-03-05 08:47] VITALS: BP 147/48; PULSE 70
[2023-03-05] MEDS: LOSARTAN 50 MG TABLET PO (08:47)
[2023-03-05] MEDS: CLOPIDOGREL 75 MG TABLET PO (08:47)
[2023-03-05] MEDS: ENOXAPARIN 40 MG/0.4 ML SYRINGE SUBCUT (08:48)
[2023-03-05] MEDS: ASPIRIN EC 81 MG TABLET PO (08:48)
[2023-03-05] MEDS: ATORVASTATIN 20 MG TABLET 40 MG PO (08:48)
[2023-03-05 08:58] LABS: Alanine Aminotransferase 17 IU/L (<35); Albumin 3.7 g/dL (3.5-5.0); Albumin Globulin Ratio 1.2 (1.0-2.8); Alkaline Phosphatase 80 U/L (38-126); Aspartate Aminotransferase 24 IU/L (14-36); Bilirubin Total 0.6 mg/dL (0.2-1.3); Blood Urea Nitrogen 13 mg/dL (7-17); Calcium 9.3 mg/dL (8.4-10.2); Carbon Dioxide 28 mmol/L (22-32); Chloride 104 mmol/L (98-107); Cholesterol 151 mg/dL (140-199); Estimated Glomerular Filt Rate > 60 mL/min (>60); Glucose 135 mg/dL (80-110); HDL Cholesterol 37 mg/dL (40-60); HEMOLYSIS < 15 (0-50); LDL Cholesterol Calculated 92 mg/dL (<100); Magnesium 1.9 mg/dL (1.6-2.3); Potassium 4.2 mmol/L (3.4-5.1); Sodium 137 mmol/L (137-145); Total Protein 6.7 g/dL (6.3-8.2); Triglycerides 109 mg/dL (35-150)
--- NOTE | 2023-03-05 09:12 | DI.MRI.S_ITS ---
PROCEDURE: MR HEAD/BRAIN WO CON INDICATIONS: cva/tia TECHNIQUE: Non-contrast axial T1 spin echo, axial T2 fast spin echo, sagittal and axial FLAIR, coronal T2 fast spin echo, axial gradient echo, axial diffusion and ADC through the brain. COMPARISON: None. FINDINGS: Image quality: Excellent. CSF spaces: Ventricles appear symmetric in size and shape. Basal cisterns are patent. No extra-axial fluid collections. Brain: No intracranial bleeds or mass effects. There is cerebral volume loss for age. There are periventricular and deep white matter chronic small vessel ischemic changes. Brainstem appears normal. Diffusion-weighted images show no acute infarct. No chronic ischemic insults. Normal intravascular flow voids are present. Skull and face: Calvarial bone marrow is normal in signal. Orbits are normal. Sinuses: Sinuses and mastoids are clear. IMPRESSION: 1. No acute intracranial process. 2. Mild to moderate atrophy and chronic microvascular ischemic changes. Dictated by: Cheryle Dillard M.D. on 03/05/2023 at 9:33 Approved by: Cheryle Dillard M.D. on 03/05/2023 at 10:08
[2023-03-05 09:29] LABS: TSH w/ Reflex to FT4 2.19 uIU/mL (0.47-4.68)
[2023-03-05] MEDS: LATANOPROST 0.005% OPHTH 2.5 ML 1 DROPS EYE-LEFT (11:37)
[2023-03-05] MEDS: INSULIN LISPRO 100 UNIT/ML 3ML VIAL SUBCUT (12:06)
[2023-03-05 12:15] VITALS: BP 169/51; PULSE 66; RESP 20; TEMP 36.4; O2SAT 100
--- NOTE | 2023-03-05 13:54 | PM.DS.1 ---
History of Present Illness History of Present Illness Date Patient Seen: 03/04/23 Time Patient Seen: 23:30 Date of Onset of Symptoms: 03/04/23 Chief complaint: Hypertension, blurred vision Narrative: 87 years old female with a past medical history of diabetes mellitus insulin-dependent type 2, hypertension, dyslipidemia, hypothyroidism and other medical issues presented to the emergency room for intermittent vision loss since earlier in the day from. She was watching TV when she noticed that the bottom portion of her vision was going blank/turning black affecting both the eyes. Also had mild headache affecting the posterior half and both the vision loss/headache has since resolved.Had a similar issue involving partial vision loss that was transient on the left eye about a week to 10 days ago. Denies any dizziness or loss of consciousness. Denies any chest pain or shortness of breath. Denies any upper or lower extremity weakness. In the ED, systolic blood pressure was in the 170s. Labs were fairly unremarkable and urine analysis was negative for nitrites/leukocyte esterase. CT scan of the head shows no acute process. CT angio of the head and neck shows no major vascular pathology. Patient was admitted for further evaluation Discharge Providers Provider Date of admission: 03/04/23 19:38 Discharge Date: 03/05/23 Primary care physician: Yarelis Rousseau PA-C Discharge provider: Ky Norton DO Summary Hospital Course Discharge Diagnosis: 1. Vision loss transient. Appears more of a TIA at this time. CT head and CT angio of the head and neck shows no acute process. Monitor in telemetry and follow-up with an MRI of the brain/echocardiogram for further patient. In the meantime continue aspirin at 81 mg daily and initiate Plavix. Continue the home statin. Check lipid panel. Focus on risk factor reduction including better blood pressure and blood sugar control. Consult physical therapy for further evaluation 2 Hypertension. Systolic is now in the 140s to 160s. With gradual reduction of the blood pressure and resume the home losartan while watching the blood pressure closely on the monitor 3 Diabetes mellitus type 2. Resume the home Actos and the Lantus while watching the blood sugars closely. Hold off on the metformin due to recent contrast use. Check an A1c level 4. Hypothyroidism resume the home levothyroxine and check a TSH level 5 Dyslipidemia resume home statin and check lipid panel Hospital Course: Admitted for bilateral lower quadrant vision loss which then resolved. ABCD2 score of 4 so DAPT started. LDL not <70 at 92 so statin raised to 80mg from 40. A1c 7%. MRI gonzalo, CT head, CTA head all normal. Echo with EF 60-65% with no clot or PFO. Patient will reumed home BP meds. Discharged to f/up with PCP for ophthalmology referral to get her eyes checked. Exam Vital Signs (past 8 hours): - 03/05/23 08:00 03/05/23 08:47 03/05/23 12:15 Temperature 98.1 F 97.6 F Pulse Rate 70 70 66 Respiratory Rate 20 20 Blood Pressure 148/47 H 147/48 H 169/51 H Pulse Oximetry 97 100 Oxygen Flow Rate 0 0 Oxygen Delivery Method Room Air Oxygen Flow Rate 0 Narrative Exam Narrative: GEN: no acute distress HEENT: moist mucous membranes, PERRL, hearing aids present NECK: trachea midline, no JVD CV: regular rate and rhythm, no murmurs PULM: clear bilaterally ABD: soft, nontender, nondistended, no organomegaly EXT: warm and well perfused with no edema NEURO: awake, alert, oriented, no focal deficits Objective Labs 03/05/23 08:29 03/05/23 08:29 Labs: Laboratory Results - last 24 hr 03/04/23 03/04/23 03/05/23 16:05 16:37 08:29 WBC 10.8 7.2 RBC 4.32 4.39 Hgb 13.4 13.4 Hct 40.0 40.6 MCV 92.5 92.6 MCH 31.0 30.6 MCHC 33.5 33.0 RDW 14.4 14.4 Plt Count 232 231 Neut % (Auto) 76.6 H 55.9 D Lymph % (Auto) 15.2 L 27.5 [place] % (Auto) 4.6 7.5 Eos % (Auto) 2.7 8.0 H Baso % (Auto) 0.9 1.1 Neut # (Auto) 8300 H 4000 Lymph # (Auto) 1600 2000 [place] # (Auto) 500 500 Eos # (Auto) 300 600 H Baso # (Auto) 100 100 Sodium 134 L 137 Potassium 4.3 4.2 Chloride 103 104 Carbon Dioxide 22 28 BUN 16 13 Creatinine 0.75 0.65 Estimated GFR > 60 > 60 BUN/Creatinine Ratio 21.3 20.0 Glucose 160 H 135 H Hemoglobin A1c 7.0 H Calcium 9.2 9.3 Magnesium 1.9 Total Bilirubin 0.6 0.6 AST 24 24 ALT 17 17 Alkaline Phosphatase 92 80 Total Protein 7.0 6.7 Albumin 3.9 3.7 Globulin 3.1 3.0 Albumin/Globulin Ratio 1.3 1.2 Triglycerides 109 Cholesterol 151 LDL Cholesterol, Calc 92 HDL Cholesterol 37 L TSH 2.19 Urine Color Yellow Urine Appearance Clear Urine pH 5.5 Ur Specific [place] 1.025 Urine Protein Negative Urine Glucose (UA) Negative Urine Ketones 1+ H Urine Occult Blood Negative Urine Nitrate Negative Urine Bilirubin Negative Urine Urobilinogen 0.2 Ur Leukocyte Esterase 1+ H Urine RBC None seen Urine WBC 1-5/hpf Ur Squamous Epith Cells 0-1 /hpf Urine Bacteria Occasional (0-1) Ur Culture Indicated? Specimen cultured [facility] Medical History Screening for colon cancer Screening for breast cancer Screening for osteoporosis Social History household members: children Smoking Status: Never smoker alcohol intake: never Discharge Plan Discharge Plan Patient Disposition: Home Provider Discharge Comment: You were admitted for a possible TIA. All of your workup was reassuring. You will now be on aspirin and plavix. You stop the plavix after 3 weeks and then continue the aspirin indefinitely. I've also raised your lipitor to 80mg and I would take it at night it works better that way. Dr. Norton Discharge orders & Medications Prescriptions: New clopidogrel 75 mg Tablet 75 mg PO DAILY 19 Days Qty: 19 0RF aspirin 81 mg Tablet,Delayed Release (Dr/Ec) 81 mg PO DAILY Qty: 30 0RF Continued (DME) pen needle, diabetic [BD Ultra-Fine Michaela Pen Needle] 32 gauge x 5/32 needle See Rx Instructions .ROUTE .COMPLEX Qty: 90 3RF Dose Instruction: USE WITH LANTUS SOLOSTAR PEN DAILY Rx Instructions: USE WITH LANTUS SOLOSTAR PEN DAILY levothyroxine 88 mcg tablet 88 mcg PO DAILY Qty: 90 2RF losartan 100 mg tablet See Rx Instructions .ROUTE .COMPLEX Qty: 90 3RF Dose Instruction: TAKE 1 TABLET DAILY Rx Instructions: TAKE 1 TABLET DAILY (DME) lancets [BD Ultra Fine Lancets] 33 gauge misc See Rx Instructions .Route Qty: 300 4RF Rx Instructions: Use to test blood sugars up to three times daily (DME) Blood Glucose Test Strip See Rx Instructions .Route Qty: 300 4RF Rx Instructions: Use to test blood sugars up to three times daily insulin glargine [Lantus Solostar U-100 Insulin] 100 unit/mL (3 mL) insulin pen 14 unit SUBCUT QPM Patient Comments: [NO ORIGINAL SIG] (DME) blood glucose control high,low Solution See Rx Instructions .ROUTE Rx Instructions: As directed metformin 500 mg tablet extended release 24 hr 500 mg PO DAILY Qty: 90 1RF Rx Instructions: stop regular metformin when starting this ER tablet. latanoprost [Xalatan] 0.005 % drops 1 drp EYE-LEFT DAILY (DME) blood glucose control, normal [OneTouch Ultra Control] Solution See Rx Instructions .ROUTE .MEDSUPPLY Qty: 1 Patient Comments: [NO ORIGINAL SIG] Rx Instructions: As directed (DME) blood-glucose meter [OneTouch Ultra2 Meter] Misc See Rx Instructions .ROUTE .MEDSUPPLY Qty: 1 Patient Comments: [NO ORIGINAL SIG] Rx Instructions: As directed pioglitazone [Actos] 15 mg tablet 30 mg PO DAILY Qty: 90 0RF Changed atorvastatin 40 mg tablet 80 mg PO DAILY Qty: 90 1RF Medication counseling provided by Pharmacist: Yes Follow up/Referrals: Yarelis Rousseau PA-C [Primary Care Provider] - 2 Weeks Visit Report/Discharge Packet Instructions: Transient Ischemic Attack, DI for Transient Ischemic Attack, Clopidogrel Stand Alone Forms: Patient Portal/API, Stroke Signs & Symptoms Discharge Data Primary Care Provider: Yarelis Rousseau Attending Provider: Angus Denis Admit Date/Time: 03/04/23 19:38 Quality VTE Deep Vein Thrombosis/Pulmonary Embolism Present on Admission: No
--- NOTE | 2023-03-05 14:03 | CM.DANOTE ---
Patient is an 87 yo female who was admitted on 03/04/23 for Hypertension/blurry vision. Pt has [facility] for insurance and her PCP is Yarelis Rousseau. EMR was reviewed. Per MD, pt with hx of DM and admitted for TIA r/o and to have MRI and Echo today and pending results might d/c home later today. SW met bedside with pt and explained role and she confirms she lives on [facility] and her youngest son Romie lives with her and assists as needed but pt is mostly independent with ADLs and still drives some on [place], does not typically use DME for ambulation. Pt denies hx of HH or SNF and confirms that both sons, James and Romie, came off [place] last night when she was brought to the ED by ambulance and have stayed locally in [place] in anticipation of providing transport home at d/c. Pt is hopeful to d/c home today and requests priority boarding pass. Per MD, imaging normal and pt medically stable to discharge home today with PCP f/u and no barriers to discharge. Plan: Patient to d/c home today via son's POV with outpt PCP f/u after discharge. LENORA Jaimes
--- NOTE | 2023-03-05 15:21 | PC.NURSE ---
Patient is A&OX4 very [place] with B hearing aids. She denies pain, and ambulates with steady gait with SBA. VSS, afebrile and she is NSR on telelmetry. She completes a brain MRI and echo this a.m. and upon results is cleared by the hospitalist for discharge home today. She verbalizes understanding of new medications as well as follow up plan. Her son's are at bedside to assist patient with discharge. She states she lives with one of her sons at home. She is escorted via w/ch to private vehicle with her sons and all of her personal belongings at 3 pm this afternoon.
== END 2023-03-05 15:00 | disposition home or self-care (01) ==
LOC: ED 18:31 → AC 19:38
PROVIDERS: Emergency Medicine; Admitting Provider Internal Medicine; Emergency Provider Emergency Medicine; PCP Physician Assistant Medical; Visit Provider Internal Medicine
DX: I10 Essential (primary) hypertension (principal); H53.8 Other visual disturbances; E11.9 Type 2 diabetes mellitus without complications; Z79.4 Long term (current) use of insulin; E78.5 Hyperlipidemia, unspecified; E03.9 Hypothyroidism, unspecified
CPT/HCPCS: 36415; 70450; 70496; 70498; 70551; 80053; 80061; 81001; 81003; 82962; 83036; 83735; 84443; 85025; 87077; 87086; 93005; 93010; 93306; 96372; 99284; G0378; J1650; J1815; Q9967

== ENCOUNTER → 2023-06-07 10:24 | Outpatient (CLI) | payer MEDICARE, SELFPAY ==
[2023-03-04 19:39] VITALS: BMI 33.0
[2023-06-07 20:00] LABS: Add Manual Diff / Slide Review NO; Basophils Absolute Auto 100 /uL (0-100); Basophils Percent Auto 1.3 % (0-2); Eosinophils Absolute Auto 400 /uL (0-450); Eosinophils Percent Auto 8.8 % (2-4); Hematocrit 40.2 % (36-46); Hemoglobin 13.4 g/dL (12.0-16.0); Lymphocytes Absolute Auto 1500 /uL (1100-4500); Lymphocytes Percent Auto 29.8 % (25-40); Mean Corpuscular HGB Conc 33.2 % (30-36); Mean Corpuscular Hemoglobin 31.7 PG (26-34); Mean Corpuscular Volume 95.3 fL (80-100); Monocytes Absolute Auto 400 /uL (0-900); Monocytes Percent Auto 7.5 % (3-14); Neutrophils Absolute Auto 2600 /uL (1500-7000); Neutrophils Percent Auto 52.6 % (50-75); Platelet Count 186 X10^3/uL (150-400); Red Blood Cell Count 4.22 X10^6/uL (4.0-5.2); Red Cell Distribution Width 15.7 % (11.6-14.8); White Blood Cell Count 4.9 X10^3/uL (4.5-11.0)
[2023-06-07 20:32] LABS: TSH w/ Reflex to FT4 1.84 uIU/mL (0.47-4.68)
[2023-06-08 13:14] LABS: Alanine Aminotransferase 18 IU/L (<35); Albumin 4.1 g/dL (3.5-5.0); Albumin Globulin Ratio 1.9 (1.0-2.8); Alkaline Phosphatase 78 U/L (38-126); Aspartate Aminotransferase 26 IU/L (14-36); BUN Creatinine Ratio 18.3 (6-22); Bilirubin Total 0.7 mg/dL (0.2-1.3); Blood Urea Nitrogen 13 mg/dL (7-17); Calcium 9.4 mg/dL (8.4-10.2); Carbon Dioxide 25 mmol/L (22-32); Chloride 108 mmol/L (98-107); Cholesterol 116 mg/dL (140-199); Estimated Glomerular Filt Rate > 60 mL/min (>60); Globulin 2.2 g/dL (1.7-4.1); Glucose 99 mg/dL (80-110); HDL Cholesterol 46 mg/dL (40-60); HEMOLYSIS < 15 (0-50); LDL Cholesterol Calculated 52 mg/dL (<100); Potassium 4.1 mmol/L (3.4-5.1); Sodium 140 mmol/L (137-145); Total Protein 6.3 g/dL (6.3-8.2); Triglycerides 90 mg/dL (35-150)
[2023-06-08 17:30] LABS: Hemoglobin A1C% w Est Avg Glu 6.9 % (4.0-6.0)
== END ==
PROVIDERS: PCP Physician Assistant Medical; Visit Provider Family Medicine
DX: Z12.11 Encounter for screening for malignant neoplasm of colon (principal); E11.69 Type 2 diabetes mellitus with other specified complication; R19.7 Diarrhea, unspecified; D72.10 Eosinophilia, unspecified; R53.83 Other fatigue; E78.5 Hyperlipidemia, unspecified; E11.8 Type 2 diabetes mellitus with unspecified complications; Z79.4 Long term (current) use of insulin; Z86.73 Personal history of transient ischemic attack (TIA), and cerebral infarction without residual deficits
CPT/HCPCS: 80053; 80061; 83036; 84443; 85025

== ENCOUNTER → 2023-06-15 10:45 | Outpatient (CLI) | payer MEDICARE, SELFPAY ==
[2023-03-04 19:39] VITALS: BMI 33.0
[2023-06-15 19:22] LABS: Alanine Aminotransferase 18 IU/L (<35); Albumin 3.7 g/dL (3.5-5.0); Albumin Globulin Ratio 1.5 (1.0-2.8); Alkaline Phosphatase 72 U/L (38-126); Aspartate Aminotransferase 26 IU/L (14-36); BUN Creatinine Ratio 20.6 (6-22); Bilirubin Total 0.6 mg/dL (0.2-1.3); Blood Urea Nitrogen 13 mg/dL (7-17); Calcium 9.1 mg/dL (8.4-10.2); Carbon Dioxide 29 mmol/L (22-32); Chloride 105 mmol/L (98-107); Estimated Glomerular Filt Rate > 60 mL/min (>60); Globulin 2.4 g/dL (1.7-4.1); Glucose 149 mg/dL (80-110); HEMOLYSIS < 15 (0-50); Potassium 4.1 mmol/L (3.4-5.1); Sodium 138 mmol/L (137-145); Total Protein 6.1 g/dL (6.3-8.2)
== END ==
PROVIDERS: PCP Physician Assistant Medical; Visit Provider Physician Assistant Medical
DX: R60.9 Edema, unspecified (principal); R53.83 Other fatigue; I10 Essential (primary) hypertension
CPT/HCPCS: 80053; 84443

== ENCOUNTER → 2023-06-21 13:06 | Outpatient (CLI) | payer MEDICARE, SELFPAY ==
[2023-03-04 19:39] VITALS: BMI 33.0
[2023-06-21 20:03] LABS: NT-proBNP (BNP-Adult 18+) 170 pg/mL (<450)
== END ==
PROVIDERS: PCP Physician Assistant Medical; Visit Provider Physician Assistant Medical
DX: R60.0 Localized edema (principal)
CPT/HCPCS: 83880

== ENCOUNTER → 2023-09-01 09:00 | Outpatient (CLI) | payer MEDICARE, SELFPAY ==
[2023-03-04 19:39] VITALS: BMI 33.0
[2023-09-01 21:09] LABS: Add Manual Diff / Slide Review NO; Basophils Absolute Auto 0 /uL (0-100); Basophils Percent Auto 0.6 % (0-2); Eosinophils Absolute Auto 500 /uL (0-450); Eosinophils Percent Auto 9.1 % (2-4); Hematocrit 39.4 % (36-46); Lymphocytes Absolute Auto 1800 /uL (1100-4500); Lymphocytes Percent Auto 30.6 % (25-40); Mean Corpuscular HGB Conc 33.1 % (30-36); Mean Corpuscular Hemoglobin 31.8 PG (26-34); Mean Corpuscular Volume 96.2 fL (80-100); Monocytes Absolute Auto 400 /uL (0-900); Monocytes Percent Auto 7.2 % (3-14); Neutrophils Absolute Auto 3100 /uL (1500-7000); Neutrophils Percent Auto 52.5 % (50-75); Platelet Count 200 X10^3/uL (150-400); Red Blood Cell Count 4.09 X10^6/uL (4.0-5.2); Red Cell Distribution Width 14.8 % (11.6-14.8); White Blood Cell Count 5.9 X10^3/uL (4.5-11.0)
[2023-09-01 22:26] LABS: Creatinine Urine Random 129.39 mg/dL
[2023-09-01 22:31] LABS: Microalbumin Urine Random 0.8 mg/dL (0-1.6)
[2023-09-01 22:43] LABS: Hemoglobin A1C% w Est Avg Glu 7.2 % (4.0-6.0)
[2023-09-01 22:53] LABS: Alanine Aminotransferase 20 IU/L (<35); Albumin 3.6 g/dL (3.5-5.0); Albumin Globulin Ratio 1.3 (1.0-2.8); Alkaline Phosphatase 83 U/L (38-126); Aspartate Aminotransferase 28 IU/L (14-36); BUN Creatinine Ratio 20.9 (6-22); Bilirubin Total 0.8 mg/dL (0.2-1.3); Blood Urea Nitrogen 14 mg/dL (7-17); Calcium 8.9 mg/dL (8.4-10.2); Carbon Dioxide 28 mmol/L (22-32); Chloride 107 mmol/L (98-107); Cholesterol 139 mg/dL (140-199); Estimated Glomerular Filt Rate > 60 mL/min (>60); Globulin 2.7 g/dL (1.7-4.1); Glucose 96 mg/dL (80-110); HDL Cholesterol 45 mg/dL (40-60); HEMOLYSIS < 15 (0-50); LDL Cholesterol Calculated 75 mg/dL (<100); Potassium 4.3 mmol/L (3.4-5.1); Sodium 140 mmol/L (137-145); Total Protein 6.3 g/dL (6.3-8.2); Triglycerides 96 mg/dL (35-150)
[2023-09-01 23:05] LABS: TSH w/ Reflex to FT4 0.53 uIU/mL (0.47-4.68)
== END ==
PROVIDERS: PCP Family Medicine; Visit Provider Physician Assistant Medical
DX: E11.9 Type 2 diabetes mellitus without complications (principal); I10 Essential (primary) hypertension; R53.83 Other fatigue; D72.10 Eosinophilia, unspecified; E03.9 Hypothyroidism, unspecified; E11.69 Type 2 diabetes mellitus with other specified complication; E78.5 Hyperlipidemia, unspecified; E11.8 Type 2 diabetes mellitus with unspecified complications; Z79.4 Long term (current) use of insulin
CPT/HCPCS: 80053; 80061; 82043; 82570; 83036; 84443; 85025

== ENCOUNTER → 2023-09-02 09:33 | Outpatient (CLI) | payer MEDICARE, SELFPAY ==
[2023-03-04 19:39] VITALS: BMI 33.0
[2023-09-02 10:07] LABS: NT-proBNP (BNP-Adult 18+) 434 pg/mL (<450)
== END ==
PROVIDERS: PCP Family Medicine; Referring Provider Physician Assistant Medical; Visit Provider Physician Assistant Medical
DX: R60.0 Localized edema (principal); Z86.73 Personal history of transient ischemic attack (TIA), and cerebral infarction without residual deficits; R53.83 Other fatigue; I10 Essential (primary) hypertension; E11.69 Type 2 diabetes mellitus with other specified complication; E78.5 Hyperlipidemia, unspecified; E03.9 Hypothyroidism, unspecified
CPT/HCPCS: 83880

== ENCOUNTER → 2023-11-28 11:03 | Outpatient (CLI) | payer MEDICARE, SELFPAY ==
[2023-03-04 19:39] VITALS: BMI 33.0
== END ==
PROVIDERS: PCP Family Medicine; Visit Provider Physician Assistant Medical
DX: T14.8XXA Other injury of unspecified body region, initial encounter (principal)
CPT/HCPCS: 87070; 87075; 87205

== ENCOUNTER 2023-11-28 17:28 | Emergency (ER) | payer MEDICARE, SELFPAY ==
[2023-03-04 19:39] VITALS: BMI 33.0
[2023-11-28 17:33] VITALS: BP 191/88; PULSE 89; RESP 18; TEMP 37.2; O2SAT 97; BMI 32.9
[2023-11-28] MEDS: FLUORESCEIN 1 MG STRIP EYE-LEFT (18:00)
[2023-11-28] MEDS: PROPARACAINE 0.5% OPHTH SOL 1 DROPS EYE-LEFT (18:01)
--- NOTE | 2023-11-28 18:12 | PC.NURSE ---
Sent from [facility] with possible shingles; they were concerned about potential eye involvement. Eye exam conducted by EAMON Ramirez.
--- NOTE | 2023-11-28 18:24 | ED_ITS ---
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 [place]cern [place] by Ophthalmology. Seen here in the emergency room department currently at this time the patient does not have any blurred vision, pain in the eye, double vision, difficulty seeing out of the left eye, she does not have any tearing, she has no pressure in the eye, she has no pustules across the eye or involving of the eyelid. She just picked up her prescription of the medications and just took her 1st dose of cephalexin, she has not taken her 1st dose of acyclovir yet. Related Data Home Medications Medication Instructions Recorded Confirmed latanoprost 0.005 % eye drops 1 drp EYE-LEFT DAILY 11/26/22 11/26/23 (Xalatan) insulin glargine 100 unit/mL (3 14 unit SUBCUT QPM 03/05/23 11/26/23 mL) subcutaneous pen (Lantus Solostar U-100 Insulin) lancing device #1 ea 06/15/23 11/26/23 Previous Rx's Medication Instructions Recorded aspirin 81 mg tablet,delayed 81 mg PO DAILY #30 tabs 03/05/23 release atorvastatin 80 mg tablet 80 mg PO DAILY #90 tabs 03/18/23 blood glucose control high and low #1 ea 05/05/23 solution blood glucose control, normal #1 ea 05/05/23 (OneTouch Ultra Control solution) blood sugar diagnostic (Blood #300 ea 05/05/23 Glucose Test strips) blood-glucose meter (OneTouch #1 ea 05/05/23 Ultra2 Meter) lancets 33 gauge #300 ea 05/05/23 losartan 100 mg tablet See Rx Instructions .Route 05/05/23 .COMPLEX #90 tabs metformin 500 mg tablet,extended 500 mg PO DAILY #90 tabs 05/05/23 release 24 hr pioglitazone 30 mg tablet 30 mg PO DAILY #90 tabs 05/19/23 pen needle, diabetic 32 gauge x #90 ea 06/08/23 (BD Ultra-Fine Michaela Pen Needle) furosemide 20 mg tablet (Lasix) 20 mg PO Q OTHER DAY #14 tabs 06/15/23 levothyroxine 88 mcg tablet 88 mcg PO DAILY #90 tabs 07/20/23 carbamazepine 100 mg See Rx Instructions PO BID #120 11/26/23 tablet,extended release,12 hr tabs (Tegretol XR) acyclovir 800 mg tablet 800 mg PO 5XD #60 tabs 11/28/23 cephalexin 250 mg tablet 500 mg (2 x 250 mg) PO TID #60 tabs 11/28/23 Allergies Allergy/AdvReac Type Severity Reaction Status Date / Time semaglutide [From Ozempic] AdvReac Severe Nausea Verified 08/24/23 10:20 empagliflozin AdvReac Intermediate Nausea Verified 08/24/23 10:20 [From Jardiance] lisinopril AdvReac Intermediate COUGH Verified 08/24/23 10:20 Review of Systems <Yarelis Ramirez PA-C - Last Filed: 11/28/23 18:29> Review of Systems Narrative: Negative except as above Integumentary/Breasts Comments: Shingles outbreak to the left side of her mouth nose and face. Currently not involving the left eye Patient History <Yarelis Ramirez PA-C - Last Filed: 11/28/23 18:29> Medical History Screening for breast cancer Screening for osteoporosis Social History household members: children Smoking Status: Never smoker alcohol intake: never Smoking Status: Never smoker Substance Use Type: does not use Exam <Yarelis Ramirez PA-C - Last Filed: 11/28/23 18:29> Initial Vital Signs Initial Vital Signs: Vital Signs Temperature 99 F 11/28/23 17:33 Pulse Rate 89 11/28/23 17:33 Respiratory Rate 18 11/28/23 17:33 Blood Pressure 191/88 H 11/28/23 17:33 Pulse Oximetry 97 11/28/23 17:33 Oxygen Delivery Method Room Air 11/28/23 17:33 Reviewed Const General: cooperative, healthy appearing, comfortable, well developed, well groomed, No acute distress and No in distress Eyes General: Yes appearance normal, both eyes and all related structures Pupils: PERRL EOM: EOM intact bilaterally Other: Proparacaine Fluorescein No dendrites No hyphae are seen on exam Skin Other: The patient has a canker sore to the left juncture of her lip, canker sores on the top of her mouth, canker sores underneath her dentures on the lower area of her mouth. She has some shingles and clear like fluid pustules to the left lateral aspect of her nose. Neuro Other: Alert oriented no acute distress Extrem Other: Range of motion, strength, pulses, cap refill preserved in the upper and lower extremities Psych Other: Patient is appropriate, alert, oriented, appearance, mental status, speech, mood, affect, attitude, thought process, thought content and judgment are intact. <Shala Lutz DO - Last Filed: 11/29/23 01:24> Initial Vital Signs Initial Vital Signs: Vital Signs Temperature 99 F 11/28/23 17:33 Pulse Rate 89 11/28/23 17:33 Respiratory Rate 18 11/28/23 17:33 Blood Pressure 191/88 H 11/28/23 17:33 Pulse Oximetry 97 11/28/23 17:33 Oxygen Delivery Method Room Air 11/28/23 17:33 Scores <Yarelis Ramirez PA-C - Last Filed: 11/28/23 18:29> GCS Citation: 15 Course <Yarelis Ramirez PA-C - Last Filed: 11/28/23 18:29> Orders Ordered: Discontinued Medications Fluorescein Sodium (Fluorescein 1 Mg Strip) 1 mg EYE-LEFT NOW ONE Stop: 11/28/23 17:50 Last Admin: 11/28/23 18:00 Dose: 1 mg Documented By: XOCHILT Proparacaine HCl (Proparacaine 0.5% Ophth Amalia) 1 drops EYE-LEFT NOW ONE Stop: 11/28/23 17:50 Last Admin: 11/28/23 18:01 Dose: 1 drop Documented By: XOCHILT Vital Signs Vital signs: Vital Signs - 8 hr 10/13/24 17:33 Temperature 99 F Pulse Rate 89 Respiratory Rate 18 Blood Pressure 191/88 H Pulse Oximetry 97 Oxygen Delivery Method Room Air Reviewed <Shala Lutz DO - Last Filed: 11/29/23 01:24> Orders Ordered: Discontinued Medications Fluorescein Sodium (Fluorescein 1 Mg Strip) 1 mg EYE-LEFT NOW ONE Stop: 11/28/23 17:50 Last Admin: 11/28/23 18:00 Dose: 1 mg Documented By: XOCHILT Proparacaine HCl (Proparacaine 0.5% Ophth Amalia) 1 drops EYE-LEFT NOW ONE Stop: 11/28/23 17:50 Last Admin: 11/28/23 18:01 Dose: 1 drop Documented By: XOCHILT Vital Signs Vital signs: Vital Signs - 8 hr 11/28/23 17:33 Temperature 99 F Pulse Rate 89 Respiratory Rate 18 Blood Pressure 191/88 H Pulse Oximetry 97 Oxygen Delivery Method Room Air MDM - Skin/Abscess/Foreign Bdy <Yarelis Ramirez PA-C - Last Filed: 11/28/23 18:29> MDM Narrative Medical decision making narrative: Pleasant female seen yesterday in the clinic diagnosed with trigeminal nerve neuralgia then seen in the clinic today and diagnosed with shingles. Sent because there was concern for ocular involvement. Seen and evaluated here in the emergency room department. Her floor exam was negative for dendrites and hyphae. Currently at this time the patient has taken her 1st dose of acyclovir here in the emergency department as well as her 1st dose of Keflex. Currently at this time her eye exam is negative. She will follow up with Ophthalmology on the [place] tomorrow Supportive therapy education, ED precautions. Differential diagnosis shingles, currently no eye involvement. Discharge Plan Departure Patient Disposition: Home Clinical Impression: Shingles Qualifiers: Herpes zoster complications: without complications Qualified Code(s): B02.9 - Zoster without complications Activity Restrictions/Additional Instructions: Take the medications as prescribed Please make an appointment with Ophthalmology Follow up with the primary care doctor Make sure that you do not touch your mouth and then touched her face Make sure not to touch your nose and then your face Make sure to fruit picker probably about 8-10 toothbrushes use the tooth brushes 3-4 days and then get rid of them sales superintendent a bottle of Listerine and you should be swish and spit at least 4 to 5 times a day Make sure that you keep her mouth clean If you can tolerate it take 250 mg to 500 mg of vitamin-C daily this will help with the healing of the shingles Your eye exam was negative for any acute findings but I need you to follow up with track mechanic the taken to a slip lamp exam Return to the emergency department as needed Please complete the prescription that you were prescribed of the acyclovir and the Keflex or cephalexin. Prescriptions: No Action atorvastatin 80 mg tablet 80 mg PO DAILY Qty: 90 3RF metformin 500 mg tablet extended release 24 hr 500 mg PO DAILY Qty: 90 1RF Rx Instructions: stop regular metformin when starting this ER tablet. losartan 100 mg tablet See Rx Instructions .ROUTE .COMPLEX Qty: 90 3RF Dose Instruction: TAKE 1 TABLET DAILY Rx Instructions: TAKE 1 TABLET DAILY (DME) lancets 33 gauge misc See Rx Instructions .Route Qty: 300 4RF Rx Instructions: Use to test blood sugars up to three times daily (DME) blood-glucose meter [OneTouch Ultra2 Meter] Misc See Rx Instructions .ROUTE .MEDSUPPLY Qty: 1 0RF Rx Instructions: As directed (DME) blood glucose control, normal [OneTouch Ultra Control] Solution See Rx Instructions .ROUTE .MEDSUPPLY Qty: 1 0RF Rx Instructions: As directed (DME) Blood Glucose Test Strip See Rx Instructions .Route Qty: 300 4RF Rx Instructions: Use to test blood sugars up to three times daily (DME) blood glucose control high,low Solution See Rx Instructions .Route Qty: 1 0RF Rx Instructions: As directed pioglitazone 30 mg tablet 30 mg PO DAILY Qty: 90 1RF (DME) pen needle, diabetic [BD Ultra-Fine Michaela Pen Needle] 32 gauge x 5/32 needle See Rx Instructions .ROUTE .COMPLEX Qty: 90 3RF Dose Instruction: USE WITH LANTUS SOLOSTAR PEN DAILY Rx Instructions: USE WITH LANTUS SOLOSTAR PEN DAILY levothyroxine 88 mcg tablet 88 mcg PO DAILY Qty: 90 3RF insulin glargine [Lantus Solostar U-100 Insulin] 100 unit/mL (3 mL) insulin pen 14 unit SUBCUT QPM Patient Comments: [NO ORIGINAL SIG] aspirin 81 mg Tablet,Delayed Release (Dr/Ec) 81 mg PO DAILY Qty: 30 0RF carbamazepine [Tegretol XR] 100 mg tablet extended release 12 hr See Rx Instructions PO BID Qty: 120 0RF Rx Instructions: Start 1 capsule twice daily. Then increase to 2 capsules twice daily on day 2. latanoprost [Xalatan] 0.005 % drops 1 drp EYE-LEFT DAILY (DME) lancing device Misc See Rx Instructions .ROUTE .MEDSUPPLY Qty: 1 Patient Comments: [NO ORIGINAL SIG] Rx Instructions: As directed furosemide [Lasix] 20 mg tablet 20 mg PO Q OTHER DAY Qty: 14 0RF cephalexin 250 mg tablet 500 mg PO TID Qty: 60 0RF acyclovir 800 mg tablet 800 mg PO 5XD Qty: 60 0RF Rx Instructions: space evenly during waking hours Referrals: Ty Carmichael MD [Primary Care Provider] - Stand Alone Forms: Patient Portal/API ED Sign-out <Shala Lutz DO - Last Filed: 11/29/23 01:24> Cosign ED Attending Karlosature Attestation: I was available for consultation.
== END 2023-11-28 18:32 | disposition home or self-care (01) ==
PROVIDERS: Emergency Provider Physician Assistant; PCP Family Medicine
DX: B02.9 Zoster without complications (principal)
CPT/HCPCS: 87070; 87075; 87205; 99282

== ENCOUNTER 2023-11-30 18:38 | Emergency (ER) | payer MEDICARE, SELFPAY ==
[2023-11-29 08:17] VITALS: BMI 33.0
[2023-11-30] VITALS (8 sets, daily range): BP systolic 156–191; BP diastolic 70–86; PULSE 81–98; RESP 18; TEMP 36.9; O2SAT 95–98; BMI 335.8
[2023-11-30] MEDS: ONDANSETRON 4 MG ODT SL (19:00)
--- NOTE | 2023-11-30 22:06 | ED.SKABFB ---
HPI - Skin/Abscess/Foreign Bdy General Chief complaint: Skin/Abscess/Foreign Body Stated complaint: sent by PCP shingles not responding to meds Time Seen by Provider: 11/30/23 19:24 Source: patient Mode of arrival: Wheelchair History of Present Illness HPI narrative: Patient is an 88-year-old female who was seen here in the emergency department approximately 48 hours ago and diagnosed with shingles in the left side of her face. Was put on acyclovir. Returns to emergency department today because she was told to come by her primary doctor because she was ?not responding? to the antibiotics. She does report pain specifically behind her left ear. No eye discomfort. Does have new lesions on the side of her face. Has a history of glaucoma. No vision changes. No ear pain. No fevers. Related Data Home Medications Medication Instructions Recorded Confirmed latanoprost 0.005 % eye drops 1 drp EYE-LEFT DAILY 11/26/22 11/26/23 (Xalatan) insulin glargine 100 unit/mL (3 14 unit SUBCUT QPM 03/05/23 11/26/23 mL) subcutaneous pen (Lantus Solostar U-100 Insulin) lancing device #1 ea 06/15/23 11/26/23 Previous Rx's Medication Instructions Recorded aspirin 81 mg tablet,delayed 81 mg PO DAILY #30 tabs 03/05/23 release atorvastatin 80 mg tablet 80 mg PO DAILY #90 tabs 03/18/23 blood glucose control high and low #1 ea 05/05/23 solution blood glucose control, normal #1 ea 05/05/23 (OneTouch Ultra Control solution) blood sugar diagnostic (Blood #300 ea 05/05/23 Glucose Test strips) blood-glucose meter (OneTouch #1 ea 05/05/23 Ultra2 Meter) lancets 33 gauge #300 ea 05/05/23 losartan 100 mg tablet See Rx Instructions .Route 05/05/23 .COMPLEX #90 tabs metformin 500 mg tablet,extended 500 mg PO DAILY #90 tabs 05/05/23 release 24 hr pioglitazone 30 mg tablet 30 mg PO DAILY #90 tabs 05/19/23 pen needle, diabetic 32 gauge x #90 ea 06/08/23 5/32 (BD Ultra-Fine Michaela Pen Needle) furosemide 20 mg tablet (Lasix) 20 mg PO Q OTHER DAY #14 tabs 06/15/23 levothyroxine 88 mcg tablet 88 mcg PO DAILY #90 tabs 07/20/23 carbamazepine 100 mg See Rx Instructions PO BID #120 11/26/23 tablet,extended release,12 hr tabs (Tegretol XR) acyclovir 800 mg tablet 800 mg PO 5XD #60 tabs 11/28/23 cephalexin 250 mg tablet 500 mg (2 x 250 mg) PO TID #60 tabs 11/28/23 erythromycin 5 mg/gram (0.5 %) eye 0.5 inch EYE-LEFT TID #3.5 grams 11/30/23 ointment hydrocodone 5 mg-acetaminophen 325 1 tab PO Q8H PRN pain #14 tabs 11/30/23 mg tablet hydrocodone 5 mg-acetaminophen 325 1 tab PO Q8H PRN pain #14 tabs 11/30/23 mg tablet Allergies Allergy/AdvReac Type Severity Reaction Status Date / Time semaglutide [From Ozempic] AdvReac Severe Nausea Verified 11/30/23 14:56 empagliflozin AdvReac Intermediate Nausea Verified 11/30/23 14:56 [From Jardiance] lisinopril AdvReac Intermediate COUGH Verified 11/30/23 14:56 Review of Systems Review of Systems ROS Unobtainable: All systems reviewed & are unremarkable except as noted in HPI and below Patient History Medical History Screening for breast cancer Screening for osteoporosis Social History household members: children Smoking Status: Never smoker alcohol intake: never Smoking Status: Never smoker Substance Use Type: does not use Exam Initial Vital Signs Initial Vital Signs: Vital Signs Temperature 98.4 F 11/30/23 18:48 Pulse Rate 98 H 11/30/23 18:48 Respiratory Rate 18 11/30/23 18:48 Blood Pressure 156/70 H 11/30/23 18:48 Pulse Oximetry 97 11/30/23 18:48 Oxygen Delivery Method Room Air 11/30/23 18:48 Const General: No ill appearing HENMT Ears: TM's normal bilaterally and EAC's normal Face and sinus: other (Skin lesions left side of face) Eyes Pupils: PERRL Other: Patient has uptake of fluorescein on the nasal aspect of the left eye. Does not have a dendritic appearance but is linear. Resp Effort & Inspection: normal respiratory effort Skin Other: Patient with vesicular lesions located on the left cheek and on the left nose and under the left eye consistent with her history zoster. There are no lesions behind the left ear. No lesions in the scalp behind her head. Extrem General: capillary refill normal Course Orders Ordered: Discontinued Medications Hydrocodone Bitart/Acetaminophen (Hydrocodone/Acet 5/325 Tablet) 1 tab PO NOW ONE Stop: 11/30/23 23:21 Last Admin: 11/30/23 23:35 Dose: 1 tab Documented By: ERNA Hydrocodone Bitart/Acetaminophen (Hydrocodone/Acet 5/325 Prepack) 1 bottle MISC DIRECTED ONE Stop: 11/30/23 23:21 Last Admin: 11/30/23 23:35 Dose: 1 bottle Documented By: ERNA Erythromycin (Erythromycin Ophth 1 Gm Oint) 1 applic EYE-LEFT NOW ONE Stop: 11/30/23 22:33 Last Admin: 11/30/23 22:45 Dose: 1 applic Documented By: ERNA Fluorescein Sodium (Fluorescein 1 Mg Strip) 1 mg EYE-BOTH NOW ONE Stop: 11/30/23 19:26 Last Admin: 11/30/23 22:40 Dose: 1 mg Documented By: ERNA Ondansetron HCl (Ondansetron 4 Mg Odt) 4 mg SL NOW PRN PRN Reason: Nausea And Vomiting Last Admin: 11/30/23 19:00 Dose: 4 mg Documented By: LAKEISHA Proparacaine HCl (Proparacaine 0.5% Ophth Amalia) 1 drops EYE-LEFT NOW ONE Stop: 11/30/23 19:26 Last Admin: 11/30/23 22:40 Dose: 1 drop Documented By: ERNA Vital Signs Vital signs: Vital Signs - 8 hr 11/30/23 18:48 11/30/23 21:53 11/30/23 21:53 Temperature 98.4 F Pulse Rate 98 H 94 H Respiratory Rate 18 Blood Pressure 156/70 H 191/86 H Pulse Oximetry 97 96 Oxygen Delivery Method Room Air 11/30/23 22:00 11/30/23 22:00 11/30/23 22:02 Temperature Pulse Rate 89 87 Respiratory Rate 18 Blood Pressure 179/79 H Pulse Oximetry 97 96 Oxygen Delivery Method 11/30/23 22:30 11/30/23 22:31 11/30/23 22:48 Temperature Pulse Rate 86 Respiratory Rate 18 Blood Pressure 180/77 H 184/78 H Pulse Oximetry 95 Oxygen Delivery Method 11/30/23 22:48 11/30/23 23:00 11/30/23 23:00 Temperature Pulse Rate 84 81 Respiratory Rate 18 Blood Pressure 175/76 H Pulse Oximetry 98 98 Oxygen Delivery Method MDM - Skin/Abscess/Foreign Bdy MDM Narrative Medical decision making narrative: Patient has no changes in her vision. No eye pain. She does have uptake with fluorescein of the left eye but it is not dendritic in appearance but is linear. No foreign body noted. She does have Rose sign. She has no lesions in her left ear. No problems breathing. I did discuss the case with Dr. Khan who is on-call for ophthalmology. She recommended placing the patient on erythromycin ointment. Continuing on antivirals. Patient does not have signs of keratitis currently. Informed the patient in the family that patient's responses to the antivirals in the setting of shingles is variable and we had not expect her symptoms to be improved after just a day and a medications. We discussed the use the erythromycin ointment. Discussed that she should have follow-up with her synthetic plasterer within the next 24-48 hours. We will continue on the acyclovir. Patient was given return precautions. I suspect that the pain behind her left ear is related to the shingles. Will provide pain control although she does understand that her symptoms maybe difficult to control given her current diagnosis. Discharge Plan Departure Patient Disposition: Home Clinical Impression: Shingles Instructions: DI for Shingles Activity Restrictions/Additional Instructions: Continue to take all of your medications to include the acyclovir. Use the erythromycin ointment in your left eye 3 times a day until you follow-up with your eye doctor. Contact your eye doctor for follow-up in the next couple days. Return to the emergency department for new symptoms. Prescriptions: New erythromycin 5 mg/gram (0.5 %) ointment 0.5 inch EYE-LEFT TID Qty: 3.5 3RF hydrocodone-acetaminophen 5-325 mg tablet 1 tab PO Q8H PRN (Reason: pain) Qty: 14 0RF hydrocodone-acetaminophen 5-325 mg tablet 1 tab PO Q8H PRN (Reason: pain) Qty: 14 0RF No Action atorvastatin 80 mg tablet 80 mg PO DAILY Qty: 90 3RF metformin 500 mg tablet extended release 24 hr 500 mg PO DAILY Qty: 90 1RF Rx Instructions: stop regular metformin when starting this ER tablet. losartan 100 mg tablet See Rx Instructions .ROUTE .COMPLEX Qty: 90 3RF Dose Instruction: TAKE 1 TABLET DAILY Rx Instructions: TAKE 1 TABLET DAILY (DME) lancets 33 gauge misc See Rx Instructions .Route Qty: 300 4RF Rx Instructions: Use to test blood sugars up to three times daily (DME) blood-glucose meter [OneTouch Ultra2 Meter] Misc See Rx Instructions .ROUTE .MEDSUPPLY Qty: 1 0RF Rx Instructions: As directed (DME) blood glucose control, normal [OneTouch Ultra Control] Solution See Rx Instructions .ROUTE .MEDSUPPLY Qty: 1 0RF Rx Instructions: As directed (DME) Blood Glucose Test Strip See Rx Instructions .Route Qty: 300 4RF Rx Instructions: Use to test blood sugars up to three times daily (DME) blood glucose control high,low Solution See Rx Instructions .Route Qty: 1 0RF Rx Instructions: As directed pioglitazone 30 mg tablet 30 mg PO DAILY Qty: 90 1RF (DME) pen needle, diabetic [BD Ultra-Fine Michaela Pen Needle] 32 gauge x 5/32 needle See Rx Instructions .ROUTE .COMPLEX Qty: 90 3RF Dose Instruction: USE WITH LANTUS SOLOSTAR PEN DAILY Rx Instructions: USE WITH LANTUS SOLOSTAR PEN DAILY levothyroxine 88 mcg tablet 88 mcg PO DAILY Qty: 90 3RF insulin glargine [Lantus Solostar U-100 Insulin] 100 unit/mL (3 mL) insulin pen 14 unit SUBCUT QPM Patient Comments: [NO ORIGINAL SIG] aspirin 81 mg Tablet,Delayed Release (Dr/Ec) 81 mg PO DAILY Qty: 30 0RF carbamazepine [Tegretol XR] 100 mg tablet extended release 12 hr See Rx Instructions PO BID Qty: 120 0RF Rx Instructions: Start 1 capsule twice daily. Then increase to 2 capsules twice daily on day 2. latanoprost [Xalatan] 0.005 % drops 1 drp EYE-LEFT DAILY (DME) lancing device Misc See Rx Instructions .ROUTE .MEDSUPPLY Qty: 1 Patient Comments: [NO ORIGINAL SIG] Rx Instructions: As directed furosemide [Lasix] 20 mg tablet 20 mg PO Q OTHER DAY Qty: 14 0RF cephalexin 250 mg tablet 500 mg PO TID Qty: 60 0RF acyclovir 800 mg tablet 800 mg PO 5XD Qty: 60 0RF Rx Instructions: space evenly during waking hours Referrals: Ty Carmichael MD [Primary Care Provider] - Stand Alone Forms: Patient Portal/API
[2023-11-30] MEDS: FLUORESCEIN 1 MG STRIP EYE-BOTH (22:40)
[2023-11-30] MEDS: PROPARACAINE 0.5% OPHTH SOL 1 DROPS EYE-LEFT (22:40)
[2023-11-30] MEDS: ERYTHROMYCIN OPHTH 1 GM OINT 1 APPLIC EYE-LEFT (22:45)
[2023-11-30] MEDS: HYDROCODONE/ACET 5/325 TABLET 1 TAB PO (23:35)
[2023-11-30] MEDS: HYDROCODONE/ACET 5/325 PREPACK 1 BOTTLE MISC (23:35)
== END 2023-11-30 23:50 | disposition home or self-care (01) ==
PROVIDERS: Emergency Provider Emergency Medicine; PCP Family Medicine
DX: B02.9 Zoster without complications (principal)
CPT/HCPCS: 99283

== ENCOUNTER → 2023-12-13 11:55 | Outpatient (CLI) | payer MEDICARE, SELFPAY ==
[2023-11-29 08:17] VITALS: BMI 33.0
== END ==
PROVIDERS: PCP Family Medicine; Visit Provider Physician Assistant Medical
DX: R53.83 Other fatigue (principal); E11.8 Type 2 diabetes mellitus with unspecified complications; Z79.4 Long term (current) use of insulin; I10 Essential (primary) hypertension; T14.8XXA Other injury of unspecified body region, initial encounter; B02.9 Zoster without complications; G50.0 Trigeminal neuralgia
CPT/HCPCS: 87086

== ENCOUNTER → 2023-12-14 10:40 | Outpatient (CLI) | payer MEDICARE, SELFPAY ==
[2023-11-29 08:17] VITALS: BMI 33.0
[2023-12-14 19:33] LABS: Hematocrit 40.7 % (36-46); Hemoglobin 13.7 g/dL (12.0-16.0); Mean Corpuscular HGB Conc 33.5 % (30-36); Mean Corpuscular Volume 95.5 fL (80-100); Platelet Count 261 X10^3/uL (150-400); Red Blood Cell Count 4.26 X10^6/uL (4.0-5.2); Red Cell Distribution Width 15.2 % (11.6-14.8); White Blood Cell Count 5.5 X10^3/uL (4.5-11.0)
[2023-12-14 19:38] LABS: Alanine Aminotransferase 16 IU/L (<35); Albumin 3.6 g/dL (3.5-5.0); Albumin Globulin Ratio 1.2 (1.0-2.8); Alkaline Phosphatase 79 U/L (38-126); Aspartate Aminotransferase 26 IU/L (14-36); BUN Creatinine Ratio 18.5 (6-22); Bilirubin Total 0.8 mg/dL (0.2-1.3); Blood Urea Nitrogen 12 mg/dL (7-17); Calcium 9.2 mg/dL (8.4-10.2); Carbon Dioxide 26 mmol/L (22-32); Chloride 102 mmol/L (98-107); Estimated Glomerular Filt Rate > 60 mL/min (>60); Globulin 2.9 g/dL (1.7-4.1); Glucose 155 mg/dL (80-110); HEMOLYSIS 20 (0-50); Potassium 4.5 mmol/L (3.4-5.1); Sodium 134 mmol/L (137-145); Total Protein 6.5 g/dL (6.3-8.2)
[2023-12-14 19:51] LABS: Hemoglobin A1C% w Est Avg Glu 6.8 % (4.0-6.0)
[2023-12-14 20:09] LABS: TSH w/ Reflex to FT4 2.95 uIU/mL (0.47-4.68)
== END ==
PROVIDERS: PCP Physician Assistant Medical; Visit Provider Physician Assistant Medical
DX: R53.83 Other fatigue (principal); E11.8 Type 2 diabetes mellitus with unspecified complications; Z79.4 Long term (current) use of insulin; I10 Essential (primary) hypertension; T14.8XXA Other injury of unspecified body region, initial encounter; G93.39 Other post infection and related fatigue syndromes
CPT/HCPCS: 80053; 83036; 84443; 85027; 87070; 87075; 87205

== ENCOUNTER → 2023-12-30 07:47 | Outpatient (CLI) | payer MEDICARE, SELFPAY ==
[2023-11-29 08:17] VITALS: BMI 33.0
== END ==
PROVIDERS: PCP Physician Assistant Medical; Visit Provider Physician Assistant Medical
DX: N39.0 Urinary tract infection, site not specified (principal)
CPT/HCPCS: 87086

== ENCOUNTER → 2024-07-07 09:43 | Outpatient (CLI) | payer MEDICARE, SELFPAY ==
[2023-11-29 08:17] VITALS: BMI 33.0
[2024-07-07 18:59] LABS: Cholesterol 156 mg/dL (140-199); HDL Cholesterol 49 mg/dL (40-60); LDL Cholesterol Calculated 89 mg/dL (<100); Triglycerides 90 mg/dL (35-150)
[2024-07-07 19:03] LABS: Hemoglobin A1C% w Est Avg Glu 6.4 % (4.0-6.0)
== END ==
PROVIDERS: PCP Physician Assistant Medical; Visit Provider Family Medicine
DX: Z79.4 Long term (current) use of insulin (principal); E11.69 Type 2 diabetes mellitus with other specified complication; E78.5 Hyperlipidemia, unspecified
CPT/HCPCS: 80061; 83036

== ENCOUNTER → 2024-10-24 09:20 | Outpatient (CLI) | payer MEDICARE, SELFPAY ==
[2023-11-29 08:17] VITALS: BMI 33.0
[2024-10-24 19:40] LABS: Add Manual Diff / Slide Review NO; Hematocrit 39.5 % (36-46); Hemoglobin 13.2 g/dL (12.0-16.0); Lymphocytes Absolute Auto 1500 /uL (1100-4500); Mean Corpuscular HGB Conc 33.5 % (30-36); Mean Corpuscular Hemoglobin 32.0 PG (26-34); Mean Corpuscular Volume 95.7 fL (80-100); Platelet Count 207 X10^3/uL (150-400)
[2024-10-24 19:49] LABS: Alanine Aminotransferase 20 IU/L (<35); Albumin 3.8 g/dL (3.5-5.0); Albumin Globulin Ratio 1.5 (1.0-2.8); Alkaline Phosphatase 74 U/L (38-126); Blood Urea Nitrogen 15 mg/dL (7-17); Calcium 9.2 mg/dL (8.4-10.2); Carbon Dioxide 29 mmol/L (22-32); Chloride 105 mmol/L (98-107); Cholesterol 126 mg/dL (140-199); Estimated Glomerular Filt Rate > 60 mL/min (>60); Globulin 2.6 g/dL (1.7-4.1); Glucose 105 mg/dL (70-99); HDL Cholesterol 47 mg/dL (40-60); HEMOLYSIS < 15 (0-50); Hemoglobin A1C% w Est Avg Glu 6.9 % (4.0-6.0); Potassium 4.7 mmol/L (3.4-5.1); Sodium 139 mmol/L (137-145); Total Protein 6.4 g/dL (6.3-8.2); Triglycerides 104 mg/dL (35-150)
[2024-10-24 20:17] LABS: TSH w/ Reflex to FT4 1.86 uIU/mL (0.47-4.68)
== END ==
PROVIDERS: PCP Physician Assistant Medical; Visit Provider Physician Assistant Medical
DX: L53.9 Erythematous condition, unspecified (principal); I10 Essential (primary) hypertension; E11.8 Type 2 diabetes mellitus with unspecified complications; Z79.4 Long term (current) use of insulin; Z86.73 Personal history of transient ischemic attack (TIA), and cerebral infarction without residual deficits; E11.69 Type 2 diabetes mellitus with other specified complication; E78.5 Hyperlipidemia, unspecified; E03.9 Hypothyroidism, unspecified
CPT/HCPCS: 80053; 80061; 83036; 84443; 85025

== ENCOUNTER → 2025-01-23 10:52 | Outpatient (CLI) | payer MEDICARE, SELFPAY ==
[2023-11-29 08:17] VITALS: BMI 33.0
[2025-01-23 19:18] LABS: Hemoglobin A1C% w Est Avg Glu 6.7 % (4.0-6.0)
== END ==
PROVIDERS: PCP Physician Assistant Medical; Referring Provider Physician Assistant Medical; Visit Provider Physician Assistant Medical
DX: E11.8 Type 2 diabetes mellitus with unspecified complications (principal); Z79.4 Long term (current) use of insulin
CPT/HCPCS: 82043; 82570; 83036